=== PATIENT | male | born 1960 | race African-American/Black ===

== ENCOUNTER 2017-01-17 19:09 | Inpatient (IN) | payer OTHER ==
[~2017-01-17] VITALS: Ht 154.9 cm; Wt 36.7 kg
--- NOTE | ~2017-01-17 | O ---
[facility] [place] [address] OPERATIVE REPORT Name: KIRSTIE CORONA SONIA Room #: 455-P [facility] IN M.R.#: [id number] Admission: 01/17/17 Attend Phys: Gwen Willett MD Discharge: Date of : 62 Report #: [id number] THIS REPORT FOR: //name// CC: Gwen Alvarez makeda DATE OF SERVICE: 02/04/2017 PREOPERATIVE DIAGNOSES: Dysphagia, aspiration, and history of cerebral palsy. POSTOPERATIVE DIAGNOSES: Dysphagia, aspiration, and history of cerebral palsy. PROCEDURE: Diagnostic laparoscopy, esophagogastroduodenoscopy, and placement of 24-Chadian gastrostomy feeding tube. SURGEON: Tramaine Nash MD COMPUTER INFORMATION SYSTEMS INSTRUCTOR: Jasbir Allison MD ANESTHESIA: General endotracheal anesthesia. ESTIMATED BLOOD LOSS: 10 mL. SPECIMEN TO PATHOLOGY: None. COMPLICATIONS: None applicable. INDICATION FOR PROCEDURE: The patient is a 56-year-old male patient with history of cerebral palsy. He is nonverbal, although he does nod yes and no appropriately. There is also history of oropharyngeal dysphagia and potential aspiration has been reported with concern for aspiration pneumonia. General surgery was therefore consulted for placement of feeding tube after attempt by gastroenterology was not successful secondary to the patient's body habitus. The patient has severe kyphoscoliosis and his stomach is largely in the thoracic cavity. By standard EGD PEG technique, this was deemed to be unsafe for placement secondary to the anatomy. Interventional radiology was also consulted and in a similar fashion, this was not safe for placement of feeding tube without more invasive procedure. Therefore, discussion of the risks and benefits was held with the patient and his mother who was the durable power of disability attorney, risks including bleeding, pain, infection, dislodgement of the tube, possible inability to place the tube secondary to anatomic considerations, possible need for removal or further manipulation of the tube at a later date and other possible unforeseen circumstances were all discussed. All questions were answered to their satisfaction and written informed consent was obtained. DESCRIPTION OF PROCEDURE: The patient was brought to the operating room and placed in a supine position. Time-out was taken to verify the patient's [facility] [address] [place] [address] OPERATIVE REPORT Name: KIRSTIE CORONA Room #: 455-P [facility] IN M.R.#: [id number] Admission: 01/17/17 Attend Phys: Gwen Willett MD Discharge: Date of : 62 Report #: [id number] identity and to plan the procedure. SCDs were in place in the lower extremities bilaterally. Preoperative antibiotics were administered. Anesthesia was induced. The patient was intubated. Abdomen was sterilely prepped and draped in standard fashion. As discussed above, the patient's anatomy was quite abnormal with severe kyphoscoliosis and previous hardware placement to stabilize the spine, which resulted in the patient's thorax and abdomen being quite contorted and small in stature. This made surgical approach more challenging. The umbilicus was anesthetized with local anesthetic and incision was made with a 10-blade and carried through the skin and subcutaneous tissue. Dissection was carried down to the level of the umbilical stalk and fascia. This was grasped and opened carefully with Metzenbaum scissors. Clamp was then passed through the opening to enlarge this and digital palpation was also performed. A 5-mm 0-degree laparoscope was then used for a direct visual access through this opening and pneumoperitoneum was created. Inspection of the viscera showed that no injury had occurred upon entry. A 30-degree 5-mm scope was then utilized and a second 5-mm left lower quadrant port was placed under direct visualization. The patient was placed in reverse Trendelenburg position. The stomach was indeed noted to be high up in thorax as seen on CT scan, this was grasped with an atraumatic grasper and pulled down toward the left upper quadrant of the abdominal cavity. This was placed into apposition against the anterior abdominal wall and was noted to lie nicely in this location without any undo tension. A stab incision was made externally at the level of the skin overlying the proposed site for feeding tube. A suture passer was passed through this stab incision and an 0 PDS suture was used to pass through the gastric body along the anterolateral border and this was brought back out through the stab incision. A second 0 PDS was placed in similar fashion and these were tagged and pulled taut to show that the stomach was placed up snuggly against the anterior abdominal wall without any undo tension. Next, a Fujinon endoscope was inserted through the oral cavity into the gastric body. This showed no obvious abnormalities anatomically. Insufflation of the stomach was performed and this was noted to expand on the laparoscopic visualization. Next, an 18-gauge needle was passed through the previously made stab incision into the gastric body, which was visualized via the Fujinon endoscope. A sheath was passed through this 18-gauge needle and the 18-gauge needle was removed. A guidewire was then passed through the sheath, which was torn away. The guidewire was then ensnared with the Fujinon endoscope and pulled back out through the oral cavity. This was then connected to a 24-Chadian Silastic PEG tube and this was lubricated and pulled back through the oral cavity, esophagus and gastric lumen through the previously created stab incision to the externa. Visualization of the gastric lumen showed that the disk was well up against the anterior wall of the gastric lumen with no obvious active bleeding. This was noted to spin in place without any undo tension or restriction. Visualization of the stomach itself from the laparoscopic view showed that this was also in good position. The 0 PDS suture was tied down. The external aspect of the tube was then cut to proper length and attachments were applied. These were then anchored into [facility] [address] [place] [address] OPERATIVE REPORT Name: KIRSTIE CORONA Room #: 455-P [facility] IN .R.#: [id number] Admission: 01/17/17 Attend Phys: Gwen Willett MD Discharge: Date of : 62 Report #: [id number] with interrupted nylon suture externally times 3. Stomach was desufflated with the Fujinon endoscope and this was withdrawn carefully from the esophagus and oral cavity with attempts to suction secretions on the away out. Pneumoperitoneum was then removed after further inspection of the stomach up against the anterior abdominal wall, which was now well anchored in place with no obvious active bleeding noted. The 5-mm ports were then removed after pneumoperitoneum had been relieved and skin was closed at each of the 2 sites using 4-0 Monocryl subcuticular stitches after further local anesthetic had been infiltrated. Dermabond was applied externally at each of the two 5 mm port sites. At this point, the case was ended, all instrumentation had been extracted and accounted for. All counts were correct per nursing report. Intraoperative photographs had been taken at various points during the procedure, which were saved for the patient's chart. The patient was then extubated and taken to the postoperative care unit in stable condition. <ELECTRONICALLY SIGNED> By: Tramaine Nash MD 02/08/17 1500 1000 1240 Tramaine Nash MD /nt
--- NOTE | ~2017-01-17 | 2DMMODE ---
[facility] [address] [place] [address] 2 D/M-MODE ECHOCARDIOGRAM Name: KIRSTIE CORONA SONIA Room #: 242-P ADM IN M.R.#: [id number] Admission: 01/17/17 Attend Phys: Gwen Willett MD Discharge: Date of : 62 Date of Service: 01/21/17 1048 Report #: [id number] THIS REPORT FOR: //name// APPROVED REPORT Study performed: 01/21/2017 07:55:37 EXAM: Comprehensive 2D, Doppler, and color-flow Echocardiogram Patient Location: Bedside Room #: 242 Blood Pressure: 158/96 mmHg HR: 114 bpm Other Information Study Quality: Adequate Technically limited study due to restless patient, tachypnea, limited mobility. Indications hypertension, respiratory failure 2D Dimensions RVDd: 30.66 mm LVEF(%): 75.46 (>50%) IVSd: 12.11 (7-11mm) LVOT Diam: 18.00 (18-24mm) LVDd: 34.10 mm PWd: 12.55 (7-11mm) Ascending Ao: 23.36 (22-36mm) LVDs: 19.36 (25-40mm) Aortic Root: 29.42 mm Grayson's LVEF: 75.46 % Volumes Left Atrial Volume (Systole) Single Plane 4CH: 22.82 mL Single Plane 2CH: 26.38 mL LA ESV Index: 19.00 mL/m2 Aortic Valve AoV Peak Kwame.: 1.73 m/s AO Peak Gr.: 11.99 mmHg LVOT Max P.25 mmHg LVOT Max V: 1.25 m/s LYNDSEY Vmax: 1.84 cm2 Mitral Valve [facility] [email or web address] [place] [address] 2 D/M-MODE ECHOCARDIOGRAM Name: CHLOE,KIRSTIE SONIA Room #: 242-P [facility] IN ..#: [id number] Admission: 01/17/17 Attend Phys: Gwen Willett MD Discharge: Date of : 62 Date of Service: 01/21/17 1048 Report #: [id number] E/A Ratio: 0.8 MV Decel. Time: 125.21 ms MV E Max Kwame.: 0.92 m/s MV A Kwame.: 1.15 m/s MV PHT: 36.31 ms IVRT: 57.67 ms Pulmonary Valve PV Peak Kwame.: 1.01 m/s PV Peak Gr.: 4.12 mmHg Tricuspid Valve TR Peak Kwame.: 2.93 m/s TR Peak Gr.: 34.34 mmHg Left Ventricle The left ventricle is normal size. There is normal LV segmental wall motion. Mild concentric left ventricular hypertrophy. Left ventricular systolic function is normal. LVEF is 65%. Grade I - abnormal relaxation pattern. Right Ventricle The right ventricle is normal size. The right ventricular systolic function is normal. Atria The left atrium size is normal. The right atrium size is normal. Aortic Valve Aortic valve leaflets are mildly thickened. No aortic regurgitation is present. There is no aortic valvular stenosis. Mitral Valve The mitral valve is normal in structure. There is no mitral valve regurgitation noted. No evidence of mitral valve stenosis. Tricuspid Valve The tricuspid valve is normal in structure. There is trace tricuspid regurgitation. There is mild pulmonary hypertension with an estimated PAP of 34 mmHg plus RAP. Pulmonic Valve The pulmonary valve is normal in structure. There is no pulmonic valvular regurgitation. Great Vessels [facility] [address] [place] [address] 2 D/M-MODE ECHOCARDIOGRAM Name: KIRSTIE CORONA SONIA Room #: 242-P ADM IN M.R.#: [id number] Admission: 01/17/17 Attend Phys: Gwen Willett MD Discharge: Date of : 62 Date of Service: 01/21/17 1048 Report #: [id number] The aortic root is normal in size. The ascending aorta is normal in size. IVC is not well visualized. Pericardium Trace pericardial effusion. <Conclusion> The left ventricle is normal size. LVEF is 65%. Aortic valve leaflets are mildly thickened. The mitral valve is normal in structure. The tricuspid valve is normal in structure. There is trace tricuspid regurgitation. There is mild pulmonary hypertension with an estimated PAP of 34 mmHg plus RAP. <ELECTRONICALLY SIGNED> By: Josh Palacios MD 01/21/17 1048 1048 1048 Josh Palacios MD /INF
--- NOTE | ~2017-01-17 | HC ---
[facility] [place] [address] CONSULTATION Name: CHLOEKIRSTIE SONIA Room #: 242-P [facility] IN M.R.#: [id number] Admission: 01/17/17 Attend Phys: Gwen Willett MD Discharge: Date of : 62 Report #: [id number] THIS REPORT FOR: //name// CC: Gwen Phillips REASON FOR CONSULTATION: I was asked to evaluate concerning pneumonia. HISTORY OF PRESENT ILLNESS: The patient is a 56-year-old with underlying severe cerebral palsy, scoliosis who was admitted on 01/17/2017 with shortness of breath, diaphoresis, anxiety. Several days prior to this, he was hospitalized at [facility] with pneumonia and suspected urinary tract infection. He was given IV antibiotic therapy. Rhinovirus was identified from his respiratory secretions. He does eat by mouth. During his hospitalization here, he has remained fairly encephalopathic. He is given vancomycin and Zosyn. Video swallow although radiographically did not show aspiration. Clinically, he appeared to aspirate with coughing after swallowing. He remains on oxygen at 2 liters. He has been afebrile but intermittently tachycardic and yesterday, he got more tachycardic and restless. He was brought down to the Intensive Care Unit for further monitoring. Overnight, he has done reasonably well. He remains somewhat hypotensive. With pain medicine, he relaxes. There has been no vomiting or diarrhea. He voids on his own. There have been no rashes or decubiti. Really minimal cough or sputum production. ALLERGIES: None known. MEDICATIONS: As noted on his MAR, including Solu-Medrol, vancomycin and Zosyn. PAST MEDICAL HISTORY: Severe kyphoscoliosis, cerebral palsy, hypertension, obstructive sleep apnea, anxiety, dysphagia. FAMILY HISTORY: Noncontributory. SOCIAL HISTORY: Nonsmoker, no significant alcohol intake, lives in a skilled nursing. REVIEW OF SYSTEMS: Noted above. PHYSICAL EXAMINATION: VITAL SIGNS: Currently, he is afebrile, hemodynamically showing tachycardia at 108, blood pressure 153/113, oxygen saturation 100% on 2 liters. GENERAL: He was arousable but would not respond verbally. EYES: Unremarkable. MOUTH: Unremarkable. NECK: Supple. He was very small in stature. He had a severe scoliosis. LUNGS: He had coarse breath sounds anteriorly, more consolidation heard in the right upper chest. Decreased breath sounds in the left base. [facility] [address] [place] [address] CONSULTATION Name: KIRSTIE CORONA Room #: 242-P [facility] IN .R.#: [id number] Admission: 01/17/17 Attend Phys: Gwen Willett MD Discharge: Date of : 62 Report #: [id number] HEART: Tachycardic. ABDOMEN: Soft and nontender, no appreciable masses. LABORATORY STUDIES: Sodium 141, potassium 3.8, bicarbonate 25, creatinine 0.8. Liver function tests normal. Troponin 0.12. Hemoglobin 10.9, white count 11.3, platelet count is 501,000. MRSA screen is pending on 2 liters of oxygen per nasal cannula. His pO2 is 85, pCO2 38, pH 7.4. Blood cultures are negative. Chest x-ray shows elevated right hemidiaphragm and atelectasis, but no other acute infiltrates. He does well as noted above. IMPRESSION: A 56-year-old with fairly advanced scoliosis and restrictive lung disease with underlying cerebral palsy. I suspect aspiration pneumonitis and would be driving his leukocytosis in addition to corticosteroids. PLAN: We will continue current support, obtain urinalysis and urine culture. He may need to be straight cath to obtain the sample. I agree with a PEG tube feeding if possible to play safely. We will continue to monitor his white count and follow his chest x-ray. <ELECTRONICALLY SIGNED> By: Vincent Posadas MD 01/21/17 1254 0845 1048 Vincent Posadas MD /nt
--- NOTE | ~2017-01-17 | P ---
[facility] [place] [address] PROCEDURE REPORT Name: KIRSTIE CORONA SONIA Room #: 455-P [facility] IN M.R.#: [id number] Admission: 01/17/17 Attend Phys: Gwen Willett MD Discharge: Date of : 62 Report #: [id number] THIS REPORT FOR: //name// CC: wGen Phillips DATE OF SERVICE: 02/02/[address] Gwen Willett. PROCEDURE: EGD with the intent of placing a PEG tube. INDICATION FOR PROCEDURE: This patient has severe cerebral palsy and scoliosis. He has developed oropharyngeal dysphagia at the age of 56 and requires a PEG tube for feeding purposes. Informed consent for this procedure was obtained prior to the administration of any medication. The risks of the procedure including bleeding, perforation, infection, complications of sedation and the possibility I could miss something have been explained to the patient and his mother has indicated her consent for the patient to have this procedure done. The patient has given his consent by nodding his head to have this procedure. He is unable to sign and unable to speak adequately to make his feelings known. Propofol was slowly titrated before and during this procedure for patient comfort by the anesthesia service. The Encentuaten upper videoscope was introduced through the upper esophageal sphincter and advanced under direct visualization to the descending duodenum. Findings are noted on withdrawal of the scope. Duodenal mucosa appears normal throughout its entirety, although I mostly just saw the duodenal bulb and the second portion of the duodenum. Pylorus, normal mucosa. Antrum, normal mucosa. Body, normal mucosa. Cardia and fundus, normal mucosa. Retroflex view did not reveal any hiatal hernia. I was able to locate one area of transillumination near the xiphoid process just to the left of it, so the xiphoid process was on the right side of this area and the patient's left ribs were on the left side of this area. Unfortunately, I think that this would cause so much pain with inspiration or coughing that most likely he would not be able to tolerate this well without having a lot of difficulty. So the decision to not place a PEG tube today was made. The scope was withdrawn into the esophagus. Esophageal mucosa was normal throughout its entirety. Scope was withdrawn. The patient went to the recovery area in stable condition. He tolerated the procedure well. IMPRESSION: 1. Normal EGD to descending duodenum. 2. Unable to place PEG tube because of inadequate placement selection process. [address] [address] PROCEDURE REPORT Name: KIRSTIE CORONA Room #: 455-P [facility] IN M.R.#: [id number] Admission: 01/17/17 Attend Phys: Gwen Willett MD Discharge: Date of : 62 Report #: [id number] This is very limited because of the patient's deformities. My recommendations were to consult interventional radiology and possibly even surgery for PEG tube placement. Thank you very much once again for allowing me to participate in his care, Dr. Willett. <ELECTRONICALLY SIGNED> By: Drea Saha, 02/03/17 1451 1306 2227 Drea Saha DO /nt
--- NOTE | ~2017-01-17 | HC ---
[facility] [place] [place] [place] [address] CONSULTATION Name: KIRSTIE CORONA SONIA Room #: 237-P [facility] IN M.R.#: [id number] Admission: 01/17/17 Attend Phys: Gwen Willett MD Discharge: Date of : 62 Report #: [id number] THIS REPORT FOR: //name// CC: Morris Phillips PRIMARY CARE PHYSICIAN: Unknown. REFERRING PHYSICIAN: Morris Cho MD. REASON FOR REFERRAL: Possible pneumonia. HISTORY OF PRESENT ILLNESS: The patient is a 56-year-old male who presents to the Emergency Room with an apparent panic attack and dyspnea. The patient is nonverbal. He has severe cerebral palsy with severe scoliosis. The patient normally resides in a intermediate. According to records, the patient was hospitalized less than a week ago at [facility] for possible pneumonia. He was just dismissed following course of antibiotics and steroids. Yesterday, according to the mother, the patient developed chills, dyspnea and apparent panic attack. The patient complains of chest pain, abdominal pain, back pain. The patient was brought to the hospital. Of note, the patient had a CT chest angiogram performed at [facility], which was negative for pulmonary embolus. He has a history of sleep apnea, but does not wear a CPAP. Currently, he is in no distress. He is nonverbal. No other family members are available. PAST MEDICAL HISTORY: Notable for severe cerebral palsy, severe scoliosis, apparent chronic elevation of right hemidiaphragm encompassing most of the right hemithorax, hypertension, GAUTAM, intolerant to the use of CPAP, anxiety and dysphagia. PAST SURGICAL HISTORY: The patient has had prior back surgery with david placement. ALLERGIES: None noted. MEDICATIONS: From home are reviewed. FAMILY HISTORY: Noncontributory. SOCIAL HISTORY: He resides at the hospital intermediate. Mother looks in [facility] [address] [place] [address] CONSULTATION Name: KIRSTIE CORONA SONIA Room #: 237-P [facility] IN [facility]#: [id number] Admission: 01/17/17 Attend Phys: Gwen Willett MD Discharge: Date of : 62 Report #: [id number] after the patient on a regular basis. There is no history of tobacco or alcohol use. REVIEW OF SYSTEMS: As mentioned above, otherwise is deferred as the patient is nonverbal. PHYSICAL EXAMINATION: GENERAL: He is awake, in no distress. VITAL SIGNS: Temperature is 97.7 degrees Fahrenheit, temperature maximum 99, pulse is 106, respiratory rate is 20, blood pressure 149/96 mmHg, saturation is 96% on supplemental O2. HEENT: Normocephalic, atraumatic. NECK: Supple, without any lymphadenopathy or thyromegaly. CHEST: Breath sounds are decreased, coarse breath sounds, markedly reduced in the right lung field. CARDIOVASCULAR: Normal S1, S2. There are no murmurs or gallop. Pulses are 2+/4+ bilaterally. ABDOMEN: Soft, nontender. No masses felt. GENITOURINARY AND RECTAL: Deferred. EXTREMITIES: No cyanosis or clubbing. MUSCULOSKELETAL: Remarkable for severe cerebral palsy, marked muscle atrophy. LABORATORY DATA: Chest x-ray shows marked elevation of the right hemidiaphragm encompassing most of the right hemidiaphragm, left lung field appears grossly unremarkable with pulmonary vascular congestion, possible left lower lobe infiltrate is noted. Electrolytes are unremarkable. Creatinine 0.8. Liver function profile is grossly unremarkable. WBC is 13,800, hemoglobin 12.1. There are no left shift. Arterial blood gas on admission revealed pH 7.35, pCO2 of 863, pO2 89 on 2 liters of O2, albumin 3.1. IMPRESSION: 1. Apparent dyspnea, anxiety, panic attack in this 56-year-old male with severe cerebral palsy. Etiology is unclear at this time, but I suspect component of untreated sleep apnea as a cause for transient hypercapnia. Chest x-ray suggests possible infiltrates suggesting pneumonia, possible aspiration in this patient with severe cerebral palsy. Progressive debility, weakness leading to hypoventilation may also be playing a role. 2. Severe cerebral palsy. 3. Severe left diaphragmatic weakness resulting in severe restrictive ventilatory defect. 4. Obstructive sleep apnea and apparent intolerance to use of CPAP. 5. Progressive debility and weakness. 6. Acute hypercapnic hypoxic respiratory failure as mentioned above. RECOMMENDATION: Agree with broad spectrum antibiotics. Role of corticosteroids is unclear at this time, but could treat for short course and taper over the [address] [address] CONSULTATION Name: CHLOEKIRSTIE SONIA Room #: 237-P ADM IN M.R.#: [id number] Admission: 01/17/17 Attend Phys: Gwen Willett MD Discharge: Date of : 62 Report #: [id number] next 5-7 days, try noninvasive positive pressure ventilation if the patient is able to tolerate though this is understandable given his severe cerebral palsy. DVT and GI prophylaxis will be addressed. Overall look in this patient is poor given severe comorbid condition. Risk of developing overt respiratory failure requiring mechanical ventilation is high. Family remains a full code blue. Thank you for the consultation. <ELECTRONICALLY SIGNED> By: Checo Jackson MD 01/25/17 1124 1111 1345 Checo Jackson MD /nt
--- NOTE | ~2017-01-17 | EKG ---
[address] [place] [address] ELECTROCARDIOGRAM REPORT Name: CHLOEKIRSTIE Room #: 202-P ADM IN M.R.#: [id number] Admission: 01/17/17 Attend Phys: Prabhu Lezama MD Discharge: Date of : 62 Report #: [id number] THIS REPORT FOR: //name// [facility] ED Test Date: 2017-01-17 Test Time: 20:13:02 Pat Name: KIRSTIE CORONA Department: Room: 202 Gender: M Lens Blocker: MZOOK : 1960 Requested By: Jeffy Moreno Order Number: [id number] MD: Mau Glover Measurements Intervals [place] Rate: 97 P: 32 VA: 99 QRS: 51 QRSD: 88 T: 61 QT: 366 QTc: 465 Interpretive Statements Sinus rhythm Short VA interval Low voltage, extremity leads Minimal ST elevation, anterolateral leads similar to previous ekg Electronically Signed On 01-19-2017 9:50:18 CDT by Mau Glover [email or web address] <ELECTRONICALLY SIGNED> By: Mau Glover MD 01/19/17 0950 2013 12 Mau Glover MD /PRESTON
--- NOTE | ~2017-01-17 | HC ---
[facility] [place] [address] CONSULTATION Name: KIRSTIE CORONA Room #: 455-P [facility] IN M.R.#: [id number] Admission: 01/17/17 Attend Phys: Gwen Willett MD Discharge: Date of : 62 Report #: [id number] THIS REPORT FOR: //name// CC: Gwen Phillips DATE OF SERVICE: 02/03/2017 REASON FOR CONSULTATION: Surgical placement of feeding tube. HISTORY OF PRESENT ILLNESS: The patient is a 56-year-old male patient with history of severe cerebral palsy. He has history of oropharyngeal dysphagia and suspected pulmonary aspiration with aspiration pneumonia. He has been evaluated by speech pathology regarding this. Gastroenterology was consulted for PEG placement and this was attempted. During the EGD portion of this procedure, it was noted that the tube will need to be quite close to the xiphoid and it was felt by the barrel waterer that this may be significantly painful postoperative; therefore, the tube was not placed through the abdominal wall and the procedure was aborted. The patient has history of delirium and cannot actively participate in his decision making. He has a durable power of city attorney. At the time of this interview family was not present at the bedside unfortunately. General Surgery and Interventional Radiology were both consulted for potential placement of feeding tube. PAST MEDICAL HISTORY: Positive for obstructive sleep apnea, hypertension, cerebral palsy, asthma, restrictive lung disease, chronic anemia, right diaphragmatic paralysis. PAST SURGICAL HISTORY: Spinal fixation. SOCIAL HISTORY: The patient's mother is the durable power of city attorney who is his guardian. The patient has DNR status at this time. Negative for tobacco, ETOH or drug use. ALLERGIES: No known drug allergies. FAMILY HISTORY: Reviewed and noncontributory. REVIEW OF SYSTEMS: Unobtainable as the patient is nonverbal. CURRENT MEDICATIONS: Include methylprednisolone 40 mg daily, PPN, electrolyte replacement, clonidine, morphine sulfate 1-10 mg q. 1 hour, metoprolol, albuterol, Benadryl, hydralazine, DuoNebs, heparin, subcutaneous famotidine, Zofran, Toradol, which has been discontinued. PHYSICAL EXAMINATION: GENERAL: The patient is thin and cachectic and nonverbal. He does attempt to nod yes or no and answer to questions. [address] [address] CONSULTATION Name: KIRSTIE CORONA Room #: 455-[facility] IN M.R.#: [id number] Admission: 01/17/17 Attend Phys: Gwen Willett MD Discharge: Date of : 62 Report #: [id number] EXTREMITIES: He has contractures at the extremities and his upper and lower extremities are significantly atrophic. Extremities with severe contractures and atrophy. PULMONARY: Shows decreased breath sounds bilaterally and breath sounds are slightly coarse. The patient is presently receiving a breathing treatment at this time. HEART: Regular without any obvious dysrhythmia. NECK: No jugular venous distention. ABDOMEN: Soft, nondistended, his abdominal habitus is compressed secondary to severe kyphoscoliosis. The left costal margin is quite near the iliac crest indicating a small abdominal cavity. This would explain the issues raised by Gastroenterology during their EGD. IMPRESSION AND PLAN: 1. 56-year-old male patient with severe cerebral palsy with oropharyngeal dysphagia and inability to tolerate oral intake without significant risk of aspiration. Agree with plan for surgical enteral access. Interventional Radiology team is presently evaluated the patient and this may be possible to be placed with image guidance in the Interventional Radiology Suit. 2. Should this prove unsuccessful, General Surgery would be happy to attempt to establish surgical enteral access, namely a laparoscopic assisted percutaneous endoscopic gastrostomy tube for the patient enteral access. Consultation very much appreciated. Will continue to follow closely and make further recommendations based upon clinical status as well as laboratory and radiographic findings. <ELECTRONICALLY SIGNED> By: Tramaine Nash MD 02/04/17 1012 1751 0516 Tramaine Nash MD /nt
--- NOTE | ~2017-01-17 | EKG ---
[address] [address] ELECTROCARDIOGRAM REPORT Name: CHLOEKIRSTIE Room #: 237-P ADM IN M.R.#: [id number] Admission: 01/17/17 Attend Phys: Gwen Willett MD Discharge: Date of : 62 Report #: [id number] THIS REPORT FOR: //name// [facility] Test Date: 2017-01-20 Test Time: 10:58:51 Pat Name: KIRSTIE CORONA Department: Room: 237 Gender: M Waste Duster: NOLBERTO : 1960 Requested By: Gwen Willett Order Number: [id number] MD: Mau Glover Measurements Intervals [place] Rate: 137 P: 48 CT: 113 QRS: 18 QRSD: 74 T: 31 QT: 303 QTc: 458 Interpretive Statements Sinus tachycardia Electronically Signed On 01-24-2017 8:13:23 CDT by Mau Glover [email or web address] <ELECTRONICALLY SIGNED> By: Mau Glover MD 01/24/17 0813 1058 1058 Mau Glover MD /EPI
[~2017-01-17 19:09] MED LIST: AMITIZA 24 MCG24 MCG PO; BACTRIM DS TAB1 EACH PO; CIPROFLOXACIN500 M1 PO; COLACE100 MG PO; DEXILANT60 MG PO; DUONEB 2.5-0.5 M3 ML INH; ESCITALOPRAM OX20 MG PO; FLEXERIL PO; HYDROCODONE-APA1 TA1 PO; LOPRESSOR50 PO; MAG-AL PLUS SUS30 ML PO; MAGOX 400400 MG PO; MIRALAX255 GM PO; OMEGA-31000 M1 PO; PERIDEX15 ML MM; PROTONIX40 M4 PO; REGLAN 10 MG TA10 MG PO; REMERON15 MG PO; SENNA8.6 MG PO; TYLENOL325 MG PO; UNICOMPLEX M TA1 TA1 PO; VITAMINC500 PO; XANAX 0.25 MG0.25 MG PO; ZANTAC 150MG T150 M1 PO; [UNRECOGNIZED DRUG - OTHER] TP
[2017-01-17 19:11] VITALS: BP 146/105
[2017-01-17 19:57] LABS: ABSOLUTE NEUTROPHILS 11.1 thou/uL (1.4-8.2); BASOPHILS 0.6 % (0.0-2.0); EOSINOPHILS 0.6 % (0.0-3.0); HEMATOCRIT 37.3 % (42.0-52.0); HEMOGLOBIN 12.1 gm/dL (14.0-18.0); MCH 28.2 pg (26.0-34.0); MCHC 32.5 g/dL (28.0-37.0); MCV 86.8 fL (80.0-100.0); MONOCYTES 5.2 % (1.0-8.0); PLATELET COUNT 451 thou/uL (150-400); POLYS 80.6 % (36.0-66.0); RDW 15.9 % (10.5-14.5); WBC 13.8 thou/uL (4.0-11.0)
[2017-01-17 19:58] LABS: MANUAL DIFF NO
[2017-01-17 20:11] LABS: ANION GAP 8 mmol/L (7-16); BUN 8 mg/dL (7-18); CALCIUM 9.2 mg/dL (8.5-10.1); CHLORIDE 102 mmol/L (98-107); CO2 32 mmol/L (21-32); CREATININE 0.8 mg/dL (0.7-1.3); GLUCOSE 108 mg/dL (74-106); POTASSIUM 4.1 mmol/L (3.5-5.1); SODIUM 142 mmol/L (136-145)
[2017-01-17] MEDS ORDERED: ACCUNEB SO1.25 MG/1 INH (20:14)
[2017-01-17] MEDS ORDERED: VITAMINC500 PO (20:14)
[2017-01-17] MEDS ORDERED: BISMUTH262 M1 PO (20:15)
[2017-01-17] MEDS ORDERED: IRON325 PO (20:16)
[2017-01-17] MEDS ORDERED: ROBITUSSIN100 MG/53 PO (20:17)
[2017-01-17] MEDS ORDERED: CLARITIN10 MG PO (20:17)
[2017-01-17] MEDS ORDERED: KRISTALOSE10 GM PO (20:17)
[2017-01-17 20:18] LABS: ALBUMIN 3.1 g/dL (3.4-5.0); ALKALINE PHOSPHATASE 89 U/L (46-116); NT-PRO BRAIN NAT PEPTIDE 711 pg/mL (<300); SGOT 14 U/L (15-37); SGPT 18 U/L (30-65); TOTAL BILIRUBIN 0.2 mg/dL (<0.1-1.0); TOTAL PROTEIN 7.2 g/dL (6.4-8.2); TROPONIN-I < 0.04 ng/mL (<0.04-0.07)
[2017-01-17 20:23] LABS: ABG SAMPLE TYPE ARTERIAL; BE(vivo) 7.1 mmol/L (-2 to +3); HCO3 34.4 mmol/L (22.0-26.0); LACTATE 1.16 mmol/L (0.5-2.0); O2(CT) 15.1 mL/dL (15.0-23.0); O2Hb 95.8 % (92.0-98.0); PCO2 63.8 mmHg (35.0-45.0); PO2 98.9 mmHg (80.0-100.0); tCO2 36.4 mmol/L (24.0-30.0)
[2017-01-17 20:24] LABS: ABG COMMENT NO COMPLICATIONS.; STICK SITE R.RADIAL
[2017-01-17 21:53] VITALS: BP 115/72
[2017-01-17 23:19] VITALS: BP 138/91
[2017-01-18 04:18] VITALS: BP 128/85
[2017-01-18 07:37] VITALS: BP 149/96
[2017-01-18 10:04] LABS: ABG SAMPLE TYPE ARTERIAL; BE(vivo) 2.7 mmol/L (-2 to +3); HCO3 26.3 mmol/L (22.0-26.0); LACTATE 1.35 mmol/L (0.5-2.0); O2(CT) 14.1 mL/dL (15.0-23.0); O2Hb 91.5 % (92.0-98.0); PO2 62.7 mmHg (80.0-100.0); sO2 93.4 % (92.0-98.0); tCO2 27.5 mmol/L (24.0-30.0)
[2017-01-18 10:05] LABS: ABG COMMENT NO COMPLICATIONS; STICK SITE R.RADIAL
[2017-01-18 11:56] VITALS: BP 152/105
[2017-01-18 19:18] VITALS: BP 159/104
[2017-01-19 02:58] VITALS: BP 170/97
[2017-01-19 07:10] VITALS: BP 148/90
[2017-01-19 10:42] LABS: HEMATOCRIT 27.9 % (42.0-52.0); MCH 27.8 pg (26.0-34.0); MCHC 32.5 g/dL (28.0-37.0); MCV 85.4 fL (80.0-100.0); PLATELET COUNT 407 thou/uL (150-400); RBC 3.27 mil/uL (4.50-6.00); RDW 16.4 % (10.5-14.5); WBC 13.9 thou/uL (4.0-11.0)
[2017-01-19 10:43] LABS: MANUAL DIFF YES
[2017-01-19 10:44] LABS: HEMOGLOBIN 9.1 gm/dL (14.0-18.0)
[2017-01-19 10:52] LABS: CALCIUM 8.7 mg/dL (8.5-10.1); CREATININE 0.7 mg/dL (0.7-1.3); MAGNESIUM 1.6 mg/dL (1.8-2.4); POTASSIUM 4.3 mmol/L (3.5-5.1)
[2017-01-19 11:00] VITALS: BP 173/110; BP 177/109
[2017-01-19 11:34] LABS: ABSOLUTE NEUTROPHILS 12.6 thou/uL (1.4-8.2); ANISOCYTOSIS 1+; ATYPICAL LYMPHS 1 %; TOTAL CELL COUNT 100
[2017-01-19 16:30] VITALS: BP 130/97; BP 165/110
[2017-01-19 20:50] VITALS: BP 176/100
[2017-01-20] VITALS (37 sets, daily range): BP systolic 125–177; BP diastolic 79–116
[2017-01-20 04:46] LABS: HEMATOCRIT 29.9 % (42.0-52.0); HEMOGLOBIN 9.6 gm/dL (14.0-18.0); MCH 27.4 pg (26.0-34.0); MCV 85.5 fL (80.0-100.0); PLATELET COUNT 420 thou/uL (150-400); RDW 16.6 % (10.5-14.5); WBC 17.5 thou/uL (4.0-11.0)
[2017-01-20 04:50] LABS: MANUAL DIFF YES
[2017-01-20 04:55] LABS: CALCIUM 8.6 mg/dL (8.5-10.1); CREATININE 0.8 mg/dL (0.7-1.3); MAGNESIUM 1.6 mg/dL (1.8-2.4); POTASSIUM 4.2 mmol/L (3.5-5.1)
[2017-01-20 05:29] LABS: ABSOLUTE NEUTROPHILS 17.3 thou/uL (1.4-8.2); ANISOCYTOSIS 1+; TOTAL CELL COUNT 100
[2017-01-20 13:41] LABS: ABG SAMPLE TYPE ARTERIAL; BE(vivo) 1.4 mmol/L (-2 to +3); HCO3 25.5 mmol/L (22.0-26.0); LACTATE 1.29 mmol/L (0.5-2.0); O2Hb 95.9 % (92.0-98.0); PCO2 38.1 mmHg (35.0-45.0); PO2 85.4 mmHg (80.0-100.0); pH 7.443 (7.360-7.450); sO2 96.8 % (92.0-98.0); tCO2 26.6 mmol/L (24.0-30.0)
[2017-01-20 13:42] LABS: STICK SITE R.RADIAL
[2017-01-21] VITALS (48 sets, daily range): BP systolic 99–198; BP diastolic 58–138
[2017-01-21 05:52] LABS: HEMATOCRIT 33.4 % (42.0-52.0); HEMOGLOBIN 10.9 gm/dL (14.0-18.0); MCH 28.1 pg (26.0-34.0); MCHC 32.7 g/dL (28.0-37.0); MCV 85.9 fL (80.0-100.0); RBC 3.89 mil/uL (4.50-6.00); RDW 16.7 % (10.5-14.5); WBC 11.3 thou/uL (4.0-11.0)
[2017-01-21 06:05] LABS: CREATININE 0.8 mg/dL (0.7-1.3); POTASSIUM 3.8 mmol/L (3.5-5.1)
[2017-01-21 21:58] LABS: URINE BILIRUBIN NEGATIVE (Negative); URINE BLOOD TRACE (Negative); URINE COLOR YELLOW; URINE GLUCOSE-RANDOM* NEGATIVE (Negative); URINE KETONES TRACE (Negative); URINE LEUKOCYTES-REFLEX NEGATIVE (Negative); URINE PROTEIN (DIPSTICK) NEGATIVE (Negative); URINE UROBILINOGEN 0.2 E.U./dl (0.2-1.0)
[2017-01-21 23:40] LABS: ABG SAMPLE TYPE ARTERIAL; BE(vivo) 3.2 mmol/L (-2 to +3); HCO3 28.9 mmol/L (22.0-26.0); LACTATE 1.65 mmol/L (0.5-2.0); O2(CT) 16.1 mL/dL (15.0-23.0); O2Hb 96.2 % (92.0-98.0); PCO2 48.9 mmHg (35.0-45.0); PO2 94.2 mmHg (80.0-100.0); pH 7.389 (7.360-7.450); sO2 97.1 % (92.0-98.0); tCO2 30.4 mmol/L (24.0-30.0)
[2017-01-21 23:41] LABS: STICK SITE L.RADIAL
[2017-01-22] VITALS (15 sets, daily range): BP systolic 117–189; BP diastolic 73–155
[2017-01-22 03:28] LABS: HEMATOCRIT 34.7 % (42.0-52.0); MCH 27.4 pg (26.0-34.0); MCHC 31.8 g/dL (28.0-37.0); MCV 86.1 fL (80.0-100.0); RBC 4.03 mil/uL (4.50-6.00); RDW 16.7 % (10.5-14.5); WBC 17.4 thou/uL (4.0-11.0)
[2017-01-22 03:48] LABS: CALCIUM 9.4 mg/dL (8.5-10.1); POTASSIUM 3.9 mmol/L (3.5-5.1)
[2017-01-23] VITALS (26 sets, daily range): BP systolic 103–182; BP diastolic 66–127
[2017-01-23 04:17] LABS: HEMATOCRIT 34.5 % (42.0-52.0); HEMOGLOBIN 11.1 gm/dL (14.0-18.0); MCHC 32.3 g/dL (28.0-37.0); MCV 86.5 fL (80.0-100.0); RBC 3.98 mil/uL (4.50-6.00); RDW 17.2 % (10.5-14.5); WBC 12.1 thou/uL (4.0-11.0)
[2017-01-23 04:42] LABS: ABG SAMPLE TYPE ARTERIAL; BE(vivo) 4.1 mmol/L (-2 to +3); HCO3 31.8 mmol/L (22.0-26.0); LACTATE 0.99 mmol/L (0.5-2.0); O2(CT) 16.3 mL/dL (15.0-23.0); O2Hb 97.7 % (92.0-98.0); PCO2 64.4 mmHg (35.0-45.0); PO2 120.3 mmHg (80.0-100.0); Pressure Support 12 cm H20; STICK SITE R.BRACHIAL; pH 7.312 (7.360-7.450); sO2 97.9 % (92.0-98.0); tCO2 33.8 mmol/L (24.0-30.0)
[2017-01-23 04:44] LABS: ALBUMIN 3.2 g/dL (3.4-5.0); CALCIUM 9.1 mg/dL (8.5-10.1); CREATININE 0.8 mg/dL (0.7-1.3); POTASSIUM 3.8 mmol/L (3.5-5.1); TOTAL BILIRUBIN 0.4 mg/dL (<0.1-1.0); TOTAL PROTEIN 6.8 g/dL (6.4-8.2)
[2017-01-23 04:56] LABS: PLATELET COUNT 394 thou/uL (150-400)
[2017-01-23 04:58] LABS: MANUAL DIFF YES
[2017-01-23 07:56] LABS: ABSOLUTE NEUTROPHILS 10.8 thou/uL (1.4-8.2); TOTAL CELL COUNT 100
[2017-01-23 07:57] LABS: ANISOCYTOSIS 1+
[2017-01-24] VITALS (26 sets, daily range): BP systolic 89–157; BP diastolic 55–122
[2017-01-24 04:32] LABS: HEMATOCRIT 33.6 % (42.0-52.0); HEMOGLOBIN 10.8 gm/dL (14.0-18.0); MCH 28.3 pg (26.0-34.0); MCHC 32.1 g/dL (28.0-37.0); MCV 88.2 fL (80.0-100.0); RBC 3.81 mil/uL (4.50-6.00); RDW 17.6 % (10.5-14.5); WBC 10.4 thou/uL (4.0-11.0)
[2017-01-24 04:45] LABS: CALCIUM 9.3 mg/dL (8.5-10.1); CREATININE 0.9 mg/dL (0.7-1.3); POTASSIUM 3.6 mmol/L (3.5-5.1); TOTAL BILIRUBIN 0.3 mg/dL (<0.1-1.0); TOTAL PROTEIN 6.4 g/dL (6.4-8.2)
[2017-01-24 08:06] LABS: ABG SAMPLE TYPE ARTERIAL; BE(vivo) 0.6 mmol/L (-2 to +3); HCO3 29.4 mmol/L (22.0-26.0); LACTATE 0.59 mmol/L (0.5-2.0); O2Hb 97.4 % (92.0-98.0); PO2 138.4 mmHg (80.0-100.0); sO2 98.2 % (92.0-98.0); tCO2 31.6 mmol/L (24.0-30.0)
[2017-01-24 08:07] LABS: PCO2 70.2 mmHg (35.0-45.0); Pressure Support 25 cm H20; STICK SITE R.BRACHIAL; TIDAL VOLUME 300 ml
[2017-01-25] VITALS (25 sets, daily range): BP systolic 98–169; BP diastolic 60–116
[2017-01-25 04:13] LABS: HEMATOCRIT 35.2 % (42.0-52.0); HEMOGLOBIN 11.2 gm/dL (14.0-18.0); MCH 28.5 pg (26.0-34.0); MCHC 31.7 g/dL (28.0-37.0); MCV 89.8 fL (80.0-100.0); RBC 3.92 mil/uL (4.50-6.00); RDW 18.1 % (10.5-14.5); WBC 7.4 thou/uL (4.0-11.0)
[2017-01-25 04:36] LABS: CALCIUM 9.3 mg/dL (8.5-10.1); POTASSIUM 3.6 mmol/L (3.5-5.1)
[2017-01-26] VITALS (14 sets, daily range): BP systolic 100–156; BP diastolic 63–103
[2017-01-26 03:52] LABS: HEMATOCRIT 33.2 % (42.0-52.0); HEMOGLOBIN 10.6 gm/dL (14.0-18.0); MCH 28.3 pg (26.0-34.0); MCHC 31.8 g/dL (28.0-37.0); RBC 3.73 mil/uL (4.50-6.00); RDW 17.3 % (10.5-14.5)
[2017-01-26 03:56] LABS: CALCIUM 9.4 mg/dL (8.5-10.1); CREATININE 0.8 mg/dL (0.7-1.3); POTASSIUM 3.2 mmol/L (3.5-5.1)
[2017-01-26 19:01] LABS: MAGNESIUM 2.4 mg/dL (1.8-2.4); POTASSIUM 4.1 mmol/L (3.5-5.1)
[2017-01-27] VITALS (26 sets, daily range): BP systolic 100–192; BP diastolic 66–102
[2017-01-28] VITALS (26 sets, daily range): BP systolic 88–179; BP diastolic 59–109
[2017-01-28 05:27] LABS: HEMATOCRIT 27.1 % (42.0-52.0); HEMOGLOBIN 8.9 gm/dL (14.0-18.0); MCH 28.6 pg (26.0-34.0); MCHC 32.9 g/dL (28.0-37.0); MCV 86.8 fL (80.0-100.0); RBC 3.12 mil/uL (4.50-6.00); RDW 16.8 % (10.5-14.5); WBC 4.5 thou/uL (4.0-11.0)
[2017-01-28 05:37] LABS: CALCIUM 8.8 mg/dL (8.5-10.1); CREATININE 0.6 mg/dL (0.7-1.3); POTASSIUM 3.2 mmol/L (3.5-5.1)
[2017-01-28 08:23] LABS: TROPONIN-I < 0.04 ng/mL (<0.04-0.07)
[2017-01-29] VITALS (16 sets, daily range): BP systolic 95–165; BP diastolic 66–107
[2017-01-29 05:04] LABS: HEMATOCRIT 34.5 % (42.0-52.0); MCH 28.3 pg (26.0-34.0); MCHC 32.9 g/dL (28.0-37.0); RBC 4.01 mil/uL (4.50-6.00); RDW 16.5 % (10.5-14.5); WBC 7.2 thou/uL (4.0-11.0)
[2017-01-29 05:15] LABS: HEMOGLOBIN 11.3 gm/dL (14.0-18.0)
[2017-01-29 05:31] LABS: ALBUMIN 2.8 g/dL (3.4-5.0); CALCIUM 9.2 mg/dL (8.5-10.1); CREATININE 0.7 mg/dL (0.7-1.3); MAGNESIUM 1.6 mg/dL (1.8-2.4); PHOSPHORUS 1.7 mg/dL (2.5-4.9); POTASSIUM 3.7 mmol/L (3.5-5.1)
[2017-01-30 00:04] VITALS: BP 143/95
[2017-01-30 03:58] VITALS: BP 139/85
[2017-01-30 05:32] LABS: ABSOLUTE NEUTROPHILS 3.1 thou/uL (1.4-8.2); BASOPHILS 0.3 % (0.0-2.0); EOSINOPHILS 0.2 % (0.0-3.0); HEMATOCRIT 28.5 % (42.0-52.0); HEMOGLOBIN 9.6 gm/dL (14.0-18.0); LYMPHOCYTES 22.8 % (24.0-44.0); MCH 28.6 pg (26.0-34.0); MCHC 33.8 g/dL (28.0-37.0); MCV 84.5 fL (80.0-100.0); MONOCYTES 7.3 % (1.0-8.0); PLATELET COUNT 165 thou/uL (150-400); POLYS 69.4 % (36.0-66.0); RBC 3.38 mil/uL (4.50-6.00); RDW 17.1 % (10.5-14.5); WBC 4.4 thou/uL (4.0-11.0)
[2017-01-30 05:40] LABS: MANUAL DIFF NO
[2017-01-30 05:46] LABS: CALCIUM 8.9 mg/dL (8.5-10.1); CREATININE 0.7 mg/dL (0.7-1.3); POTASSIUM 3.4 mmol/L (3.5-5.1)
[2017-01-30 08:45] VITALS: BP 119/67
[2017-01-30 12:34] VITALS: BP 131/83
[2017-01-30 15:58] VITALS: BP 145/75
[2017-01-30 20:00] VITALS: BP 153/91
[2017-01-31 04:10] VITALS: BP 120/83
[2017-01-31 04:32] LABS: CALCIUM 8.9 mg/dL (8.5-10.1); CREATININE 0.7 mg/dL (0.7-1.3)
[2017-01-31 07:51] VITALS: BP 136/85
[2017-01-31 11:46] VITALS: BP 168/103
[2017-01-31 15:58] VITALS: BP 133/92
[2017-01-31 19:38] VITALS: BP 112/81
[2017-01-31 23:40] VITALS: BP 138/87
[2017-02-01 04:33] VITALS: BP 109/70
[2017-02-01 07:07] LABS: ABG SAMPLE TYPE ARTERIAL; BE(vivo) 5.9 mmol/L (-2 to +3); O2(CT) 15.6 mL/dL (15.0-23.0); O2Hb 94.6 % (92.0-98.0); PCO2 41.4 mmHg (35.0-45.0); PO2 76.6 mmHg (80.0-100.0); STICK SITE R.BRACHIAL; pH 7.478 (7.360-7.450); sO2 96.1 % (92.0-98.0); tCO2 31.3 mmol/L (24.0-30.0)
[2017-02-01 08:38] VITALS: BP 113/78
[2017-02-01 12:16] VITALS: BP 141/94
[2017-02-01 16:02] VITALS: BP 104/71
[2017-02-01 19:25] VITALS: BP 104/76
[2017-02-01 23:05] VITALS: BP 91/58
[2017-02-02 05:17] VITALS: BP 89/59
[2017-02-02 05:51] VITALS: BP 103/68
[2017-02-02 06:45] LABS: CALCIUM 9.4 mg/dL (8.5-10.1); CREATININE 0.8 mg/dL (0.7-1.3); POTASSIUM 5.3 mmol/L (3.5-5.1)
[2017-02-02 07:17] VITALS: BP 123/85
[2017-02-02 07:39] LABS: HEMATOCRIT 34.3 % (42.0-52.0); HEMOGLOBIN 11.3 gm/dL (14.0-18.0); MCH 28.3 pg (26.0-34.0); MCHC 32.9 g/dL (28.0-37.0); MCV 85.9 fL (80.0-100.0); RBC 3.99 mil/uL (4.50-6.00); RDW 17.4 % (10.5-14.5); WBC 5.2 thou/uL (4.0-11.0)
[2017-02-02 15:14] VITALS: BP 112/74
[2017-02-02 19:28] VITALS: BP 133/91
[2017-02-03 00:04] VITALS: BP 97/64
[2017-02-03 04:13] VITALS: BP 109/71
[2017-02-03 06:16] LABS: HEMATOCRIT 26.6 % (42.0-52.0); MCH 28.4 pg (26.0-34.0); MCV 86.3 fL (80.0-100.0); RBC 3.09 mil/uL (4.50-6.00); RDW 17.3 % (10.5-14.5); WBC 4.5 thou/uL (4.0-11.0)
[2017-02-03 06:24] LABS: CREATININE 0.7 mg/dL (0.7-1.3); POTASSIUM 4.5 mmol/L (3.5-5.1)
[2017-02-03 06:25] LABS: HEMOGLOBIN 8.8 gm/dL (14.0-18.0)
[2017-02-03 09:07] VITALS: BP 118/75
[2017-02-03 11:56] VITALS: BP 136/79
[2017-02-03 17:12] VITALS: BP 149/87
[2017-02-03 20:10] VITALS: BP 136/88
[2017-02-04] VITALS (10 sets, daily range): BP systolic 130–175; BP diastolic 81–112
[2017-02-05 03:46] VITALS: BP 117/79
[2017-02-05 21:11] VITALS: BP 102/66
[2017-02-06 04:00] VITALS: BP 123/76
[2017-02-06 07:57] VITALS: BP 125/78
[2017-02-06 11:03] VITALS: BP 122/79
[2017-02-06 15:51] VITALS: BP 101/66
[2017-02-06 20:08] VITALS: BP 153/73
[2017-02-07] VITALS: BP 107/78
[2017-02-07 04:48] VITALS: BP 103/73
[2017-02-07 05:57] LABS: HEMOGLOBIN 9.2 gm/dL (14.0-18.0); MCH 28.9 pg (26.0-34.0); MCHC 33.9 g/dL (28.0-37.0); MCV 85.2 fL (80.0-100.0); RBC 3.17 mil/uL (4.50-6.00); RDW 17.5 % (10.5-14.5); WBC 7.3 thou/uL (4.0-11.0)
[2017-02-07 06:04] LABS: CALCIUM 9.3 mg/dL (8.5-10.1); CREATININE 0.6 mg/dL (0.7-1.3); POTASSIUM 4.6 mmol/L (3.5-5.1)
[2017-02-07 08:15] VITALS: BP 115/84
[2017-02-07 11:32] VITALS: BP 95/57
[2017-02-07 15:35] VITALS: BP 102/64
[2017-02-07 19:37] VITALS: BP 107/61
[2017-02-08 03:50] VITALS: BP 104/65
[2017-02-08 05:47] LABS: ABSOLUTE NEUTROPHILS 4.7 thou/uL (1.4-8.2); BASOPHILS 0.4 % (0.0-2.0); EOSINOPHILS 0.4 % (0.0-3.0); HEMATOCRIT 23.6 % (42.0-52.0); HEMOGLOBIN 7.8 gm/dL (14.0-18.0); LYMPHOCYTES 15.8 % (24.0-44.0); MCH 28.7 pg (26.0-34.0); MCHC 33.2 g/dL (28.0-37.0); MCV 86.6 fL (80.0-100.0); MONOCYTES 8.8 % (1.0-8.0); PLATELET COUNT 180 thou/uL (150-400); POLYS 74.6 % (36.0-66.0); RBC 2.73 mil/uL (4.50-6.00); RDW 17.6 % (10.5-14.5); WBC 6.3 thou/uL (4.0-11.0)
[2017-02-08 05:52] LABS: MANUAL DIFF NO
[2017-02-08 05:59] LABS: CALCIUM 9.1 mg/dL (8.5-10.1); CREATININE 0.6 mg/dL (0.7-1.3); POTASSIUM 4.5 mmol/L (3.5-5.1)
[2017-02-08 07:57] VITALS: BP 130/76
[2017-02-08 12:57] VITALS: BP 93/62
[2017-02-08 15:18] VITALS: BP 102/62
[2017-02-08 20:30] VITALS: BP 89/66
[2017-02-09 04:00] VITALS: BP 95/62
[2017-02-09 05:56] LABS: ABSOLUTE NEUTROPHILS 3.8 thou/uL (1.4-8.2); BASOPHILS 0.5 % (0.0-2.0); EOSINOPHILS 1.8 % (0.0-3.0); HEMATOCRIT 25.3 % (42.0-52.0); HEMOGLOBIN 8.6 gm/dL (14.0-18.0); LYMPHOCYTES 19.7 % (24.0-44.0); MCH 29.7 pg (26.0-34.0); MCV 87.4 fL (80.0-100.0); MONOCYTES 6.5 % (1.0-8.0); PLATELET COUNT 183 thou/uL (150-400); POLYS 71.5 % (36.0-66.0); RBC 2.89 mil/uL (4.50-6.00); WBC 5.3 thou/uL (4.0-11.0)
[2017-02-09 05:57] LABS: MANUAL DIFF NO
[2017-02-09 08:32] VITALS: BP 96/66
[2017-02-09 11:18] VITALS: BP 93/58
[2017-02-09 15:05] VITALS: BP 93/55
[2017-02-09 19:42] VITALS: BP 107/72
[2017-02-10 03:27] VITALS: BP 117/80
[2017-02-10 07:52] VITALS: BP 111/67
[2017-02-10 17:03] VITALS: BP 125/75
[2017-02-10 20:00] VITALS: BP 111/71
[2017-02-11] VITALS (7 sets, daily range): BP systolic 112–128; BP diastolic 67–81
[2017-02-12 06:45] VITALS: BP 115/75
[2017-02-12 07:45] VITALS: BP 114/68
[2017-02-12 12:05] VITALS: BP 116/70
[2017-02-12 16:13] VITALS: BP 118/72
[2017-02-12 19:59] VITALS: BP 117/70
[2017-02-13] VITALS (7 sets, daily range): BP systolic 115–184; BP diastolic 69–116
[2017-02-13 06:07] LABS: ABSOLUTE NEUTROPHILS 3.1 thou/uL (1.4-8.2); EOSINOPHILS 5.4 % (0.0-3.0); HEMOGLOBIN 8.3 gm/dL (14.0-18.0); LYMPHOCYTES 18.8 % (24.0-44.0); MCH 29.1 pg (26.0-34.0); MCHC 33.3 g/dL (28.0-37.0); MCV 87.4 fL (80.0-100.0); MONOCYTES 6.1 % (1.0-8.0); PLATELET COUNT 241 thou/uL (150-400); POLYS 68.7 % (36.0-66.0); RBC 2.86 mil/uL (4.50-6.00); RDW 17.8 % (10.5-14.5); WBC 4.5 thou/uL (4.0-11.0)
[2017-02-13 06:32] LABS: CALCIUM 8.9 mg/dL (8.5-10.1); CREATININE 0.6 mg/dL (0.7-1.3); MAGNESIUM 1.9 mg/dL (1.8-2.4); POTASSIUM 4.1 mmol/L (3.5-5.1)
[2017-02-13 07:23] LABS: MANUAL DIFF NO
[2017-02-14 06:09] VITALS: BP 109/66
[2017-02-14 12:00] VITALS: BP 112/72
[2017-02-14 15:06] VITALS: BP 120/81
[2017-02-14 19:32] VITALS: BP 109/69
[2017-02-15 05:13] VITALS: BP 125/80
[2017-02-15 05:55] LABS: ABSOLUTE NEUTROPHILS 4.2 thou/uL (1.4-8.2); BASOPHILS 1.1 % (0.0-2.0); EOSINOPHILS 2.8 % (0.0-3.0); HEMATOCRIT 22.6 % (42.0-52.0); HEMOGLOBIN 7.5 gm/dL (14.0-18.0); LYMPHOCYTES 11.8 % (24.0-44.0); MCH 29.5 pg (26.0-34.0); MCHC 33.2 g/dL (28.0-37.0); MCV 88.7 fL (80.0-100.0); MONOCYTES 6.4 % (1.0-8.0); PLATELET COUNT 226 thou/uL (150-400); POLYS 77.9 % (36.0-66.0); RBC 2.55 mil/uL (4.50-6.00); RDW 17.1 % (10.5-14.5); WBC 5.4 thou/uL (4.0-11.0)
[2017-02-15 06:00] LABS: MANUAL DIFF NO
[2017-02-15 06:10] LABS: CALCIUM 9.3 mg/dL (8.5-10.1); CREATININE 0.6 mg/dL (0.7-1.3); POTASSIUM 4.1 mmol/L (3.5-5.1)
[2017-02-15 10:59] VITALS: BP 124/78
[2017-02-15 11:43] VITALS: BP 130/72
[2017-02-15 17:23] VITALS: BP 135/78
[2017-02-15 20:07] VITALS: BP 153/97
[2017-02-16 05:11] VITALS: BP 151/92
[2017-02-16 07:25] VITALS: BP 139/92
[2017-02-16 11:48] VITALS: BP 171/112
[2017-02-16 15:01] VITALS: BP 142/84
[2017-02-16 19:29] VITALS: BP 167/99
[2017-02-17] VITALS (8 sets, daily range): BP systolic 113–179; BP diastolic 68–120
[2017-02-17 06:01] LABS: ABSOLUTE NEUTROPHILS 4.5 thou/uL (1.4-8.2); BASOPHILS 0.7 % (0.0-2.0); EOSINOPHILS 1.7 % (0.0-3.0); HEMATOCRIT 24.6 % (42.0-52.0); LYMPHOCYTES 14.9 % (24.0-44.0); MCH 28.8 pg (26.0-34.0); MCHC 32.6 g/dL (28.0-37.0); MCV 88.4 fL (80.0-100.0); MONOCYTES 7.2 % (1.0-8.0); PLATELET COUNT 266 thou/uL (150-400); POLYS 75.5 % (36.0-66.0); RBC 2.78 mil/uL (4.50-6.00); RDW 16.9 % (10.5-14.5)
[2017-02-17 06:02] LABS: MANUAL DIFF NO
[2017-02-17 06:37] LABS: CALCIUM 8.7 mg/dL (8.5-10.1); CREATININE 0.5 mg/dL (0.7-1.3); POTASSIUM 3.4 mmol/L (3.5-5.1)
[2017-02-18] VITALS (7 sets, daily range): BP systolic 115–152; BP diastolic 70–106
[2017-02-18 06:10] LABS: BASOPHILS 0.4 % (0.0-2.0); EOSINOPHILS 3.7 % (0.0-3.0); HEMATOCRIT 24.6 % (42.0-52.0); HEMOGLOBIN 8.1 gm/dL (14.0-18.0); LYMPHOCYTES 18.3 % (24.0-44.0); MCH 29.1 pg (26.0-34.0); MCHC 33.1 g/dL (28.0-37.0); MONOCYTES 6.7 % (1.0-8.0); PLATELET COUNT 264 thou/uL (150-400); POLYS 70.9 % (36.0-66.0); RDW 17.2 % (10.5-14.5); WBC 5.7 thou/uL (4.0-11.0)
[2017-02-18 06:18] LABS: MANUAL DIFF NO
[2017-02-18 06:21] LABS: CALCIUM 8.8 mg/dL (8.5-10.1); CREATININE 0.5 mg/dL (0.7-1.3); POTASSIUM 3.7 mmol/L (3.5-5.1)
[2017-02-19 03:37] VITALS: BP 129/93
[2017-02-19 05:38] LABS: CREATININE 0.6 mg/dL (0.7-1.3); POTASSIUM 4.1 mmol/L (3.5-5.1)
[2017-02-19 07:28] VITALS: BP 138/95
[2017-02-19 11:47] VITALS: BP 147/89
[2017-02-19 15:15] VITALS: BP 144/98
[2017-02-19 19:44] VITALS: BP 142/95
[2017-02-20] VITALS (7 sets, daily range): BP systolic 106–145; BP diastolic 64–100
[2017-02-20 04:27] LABS: CREATININE 0.5 mg/dL (0.7-1.3); POTASSIUM 4.2 mmol/L (3.5-5.1)
[2017-02-21 04:06] VITALS: BP 118/66
[2017-02-21 08:00] VITALS: BP 128/77
[2017-02-21 12:00] VITALS: BP 132/70
[2017-02-21] MEDS ORDERED: METOCLOPRA10 MG/101 PER TUBE (12:55)
[2017-02-21] MEDS ORDERED: PERIDEX15 ML MM (12:55)
[2017-02-21] MEDS ORDERED: IRON325 PO (12:55)
[2017-02-21] MEDS ORDERED: REMERON15 MG PO (12:55)
[2017-02-21] MEDS ORDERED: FLEXERIL PO (12:55)
[2017-02-21] MEDS ORDERED: RAPAFLO4 MG PO (12:55)
[2017-02-21] MEDS ORDERED: BISMUTH262 M1 PO (12:55)
[2017-02-21] MEDS ORDERED: [UNRECOGNIZED DRUG - OTHER] TP (12:55)
[2017-02-21] MEDS ORDERED: PROTONIX40 M4 PO (12:55)
[2017-02-21] MEDS ORDERED: SENNA8.6 MG PO (12:55)
[2017-02-21] MEDS ORDERED: ESCITALOPRAM OX20 MG PO (12:55)
[2017-02-21] MEDS ORDERED: MIRALAX255 GM PO (12:55)
[2017-02-21] MEDS ORDERED: COLACE100 MG PO (12:55)
[2017-02-21] MEDS ORDERED: ROBITUSSIN100 MG/53 PO (12:55)
[2017-02-21] MEDS ORDERED: ZANTAC 150MG T150 M1 PO (12:55)
[2017-02-21] MEDS ORDERED: AMITIZA 24 MCG24 MCG PO (12:55)
[2017-02-21] MEDS ORDERED: LOPRESSOR50 PO (12:55)
[2017-02-21] MEDS ORDERED: OMEGA-31000 M1 PO (12:55)
[2017-02-21] MEDS ORDERED: HYDROCODONE-APA1 TA1 PO (12:55)
[2017-02-21] MEDS ORDERED: AKWA TEARS OIN3.5 GM OPHTHALMIC (12:55)
[2017-02-21] MEDS ORDERED: KRISTALOSE10 GM PO (12:55)
[2017-02-21] MEDS ORDERED: XANAX 0.25 MG0.25 MG PO (12:55)
[2017-02-21] MEDS ORDERED: MAGOX 400400 MG PO (12:55)
[2017-02-21] MEDS ORDERED: CLARITIN10 MG PO (12:55)
[2017-02-21] MEDS ORDERED: TRANSDERM-SCO1 PATC1 TRANSDERM (13:02)
[2017-02-21 13:50] VITALS: BP 115/70
== END 2017-02-21 17:57 | disposition home health service (06) | DRG 871 ==
LOC: ER 19:09 → 2N 21:04 → ICU 21:04 → EROBS 21:04 → 2N 21:54 → ICU 01-20 15:47 → 2N 01-21 16:09 → ICU 01-22 16:53 → 4W 01-29 16:06
PROVIDERS: Family Medicine; Hospitalist; Internal Medicine; Internal Medicine Endocrinology, Diabetes & Metabolism; Internal Medicine Pulmonary Disease; Nurse Practitioner Acute Care; Physician Assistant; Specialist; Surgery
PROC: 0DJ08ZZ Inspection of Upper Intestinal Tract, Via Natural or Artificial Opening Endoscopic (ICD-10-PCS; principal; 2017-02-04)
PROC: 0DH63UZ Insertion of Feeding Device into Stomach, Percutaneous Approach (ICD-10-PCS; principal; 2017-02-04)
DX: A41.9 Sepsis, unspecified organism (principal); J69.0 Pneumonitis due to inhalation of food and vomit; J96.01 Acute respiratory failure with hypoxia; J96.02 Acute respiratory failure with hypercapnia; G93.41 Metabolic encephalopathy; E43 Unspecified severe protein-calorie malnutrition; E87.0 Hyperosmolality and hypernatremia; K56.7 Ileus, unspecified; Z68.1 Body mass index [BMI] 19.9 or less, adult; G80.9 Cerebral palsy, unspecified; R65.20 Severe sepsis without septic shock; J98.6 Disorders of diaphragm; M41.9 Scoliosis, unspecified; G47.33 Obstructive sleep apnea (adult) (pediatric); I10 Essential (primary) hypertension; Z66 Do not resuscitate; E87.6 Hypokalemia; R13.10 Dysphagia, unspecified; R33.9 Retention of urine, unspecified; D53.9 Nutritional anemia, unspecified; R19.7 Diarrhea, unspecified; Z79.899 Other long term (current) drug therapy
CPT/HCPCS: 10045; 10078; 10081; 10797; 50010; 50101; 50249; 50386; 50403; 50555; 50944; 52265; 54022; 54118; 56524; 56525; 56526; 62110; 62900; 70005

== ENCOUNTER 2017-03-29 10:06 | Emergency (ER) | payer OTHER ==
[~2017-03-29] VITALS: Ht 154.9 cm; Wt 38.6 kg
--- NOTE | ~2017-03-29 | EKG ---
[address] [address] [place] [address] ELECTROCARDIOGRAM REPORT Name: KIRSTIE CORONA Room #: DEP Lloyd#: [id number] Admission: 03/29/17 Attend Phys: Discharge: 03/29/17 Date of : 62 Report #: [id number] THIS REPORT FOR: //name// [facility] ED Test Date: 2017-03-29 Test Time: 10:33:12 Pat Name: KIRSTIE CORONA Department: Room: Gender: Tax Compliance Manager: BECK : 1960 Requested By: Mickey Jeffries Order Number: [id number] MD: Parish Lopez Measurements Intervals [place] Rate: 81 P: 21 ME: 148 QRS: -13 QRSD: 73 T: 36 QT: 343 QTc: 398 Interpretive Statements Sinus rhythm Low voltage, extremity leads Baseline wander in lead(s) V2 Compared to ECG 01/20/2017 10:58:51 Sinus tachycardia no longer present Electronically Signed On 03-30-2017 8:08:01 CDT by Parish Lopez [email or web address] <ELECTRONICALLY SIGNED> By: Parish Lopez MD, [facility] 03/30/17 0808 1033 1033 Parish Lopez MD, [facility] /EPI
[~2017-03-29 10:06] MED LIST changes: +ACCUNEB SO1.25 MG/1 INH; +AKWA TEARS OIN3.5 GM OPHTHALMIC; +BISMUTH262 M1 PO; +CLARITIN10 MG PO; +IRON325 PO; +KRISTALOSE10 GM PO; +METOCLOPRA10 MG/101 PER TUBE; +RAPAFLO4 MG PO; +ROBITUSSIN100 MG/53 PO; +TRANSDERM-SCO1 PATC1 TRANSDERM
[2017-03-29 10:37] LABS: ABSOLUTE NEUTROPHILS 2.3 thou/uL (1.4-8.2); BASOPHILS 0.4 % (0.0-2.0); EOSINOPHILS 13.8 % (0.0-3.0); HEMATOCRIT 38.4 % (42.0-52.0); HEMOGLOBIN 12.6 gm/dL (14.0-18.0); LYMPHOCYTES 24.8 % (24.0-44.0); MCH 28.5 pg (26.0-34.0); MCHC 32.8 g/dL (28.0-37.0); MCV 86.9 fL (80.0-100.0); MONOCYTES 7.1 % (1.0-8.0); PLATELET COUNT 179 thou/uL (150-400); POLYS 53.9 % (36.0-66.0); RBC 4.42 mil/uL (4.50-6.00); RDW 15.4 % (10.5-14.5); WBC 4.3 thou/uL (4.0-11.0)
[2017-03-29 10:38] LABS: MANUAL DIFF NO
[2017-03-29 10:46] LABS: ANION GAP 3 mmol/L (7-16); BUN 15 mg/dL (7-18); CALCIUM 9.3 mg/dL (8.5-10.1); CHLORIDE 101 mmol/L (98-107); CO2 34 mmol/L (21-32); CREATININE 0.7 mg/dL (0.7-1.3); GLUCOSE 112 mg/dL (74-106); POTASSIUM 4.2 mmol/L (3.5-5.1); SODIUM 138 mmol/L (136-145)
[2017-03-29 10:52] LABS: ALBUMIN 3.2 g/dL (3.4-5.0); ALKALINE PHOSPHATASE 89 U/L (46-116); DIRECT BILIRUBIN < 0.1 mg/dL (<0.1-0.3); SGOT 17 U/L (15-37); SGPT 21 U/L (30-65); TOTAL BILIRUBIN 0.2 mg/dL (<0.1-1.0); TOTAL PROTEIN 7.3 g/dL (6.4-8.2); TROPONIN-I < 0.04 ng/mL (<0.04-0.07)
[2017-03-29] MEDS ORDERED: TRANSDERM-SCO1 PATC1 TD (11:19)
[2017-03-29 11:46] LABS: URINE BILIRUBIN NEGATIVE (Negative); URINE BLOOD NEGATIVE (Negative); URINE COLOR YELLOW; URINE GLUCOSE-RANDOM* NEGATIVE (Negative); URINE KETONES NEGATIVE (Negative); URINE NITRITE NEGATIVE (Negative); URINE PROTEIN (DIPSTICK) NEGATIVE (Negative); URINE SPECIFIC GRAVITY <= 1.005 (1.003-1.035); URINE UROBILINOGEN 0.2 E.U./dl (0.2-1.0)
[2017-03-29] MEDS ORDERED: ONDANSETRON HCL4 M2 PO (12:49)
== END 2017-03-29 14:52 | disposition home or self-care (01) ==
LOC: ER 10:06
PROVIDERS: Nurse Practitioner
DX: R11.0 Nausea (principal); M25.552 Pain in left hip; I10 Essential (primary) hypertension; M19.90 Unspecified osteoarthritis, unspecified site; F41.9 Anxiety disorder, unspecified; F32.9 Major depressive disorder, single episode, unspecified; Z87.442 Personal history of urinary calculi; Z86.69 Personal history of other diseases of the nervous system and sense organs

== ENCOUNTER 2017-04-12 11:23 | Emergency (ER) | payer OTHER ==
[~2017-04-12] VITALS: Wt 36.5 kg
--- NOTE | ~2017-04-12 | EKG ---
[address] [address] [facility] [place] [address] ELECTROCARDIOGRAM REPORT Name: KIRSTIE CORONA SONIA Room #: DEP Lloyd#: [id number] Admission: 04/12/17 Attend Phys: Discharge: 04/12/17 Date of : 62 Report #: [id number] THIS REPORT FOR: //name// [facility] ED Test Date: 2017-04-12 Test Time: 11:46:45 Pat Name: KIRSTIE CORONA Department: Room: Gender: M Branch Or Department Chief Librarian: [id number] : 1960 Requested By: Kat Calles Order Number: [id number] MD: Parish Lopez Measurements Intervals [place] Rate: 91 P: 22 RI: 138 QRS: -30 QRSD: 73 T: 22 QT: 350 QTc: 431 Interpretive Statements Sinus rhythm Possible Inferior infarct, old Compared to ECG 03/29/2017 10:33:12 No significant change was found Electronically Signed On 04-13-2017 18:15:28 CDT by Parish Lopez [email or web address] <ELECTRONICALLY SIGNED> By: Parish Lpoez MD, [facility] 04/13/17 1815 D: [id number] 114 Parish Lopez MD, FAC /EPI
[~2017-04-12 11:23] MED LIST changes: +ONDANSETRON HCL4 M2 PO; +TRANSDERM-SCO1 PATC1 TD
[2017-04-12 11:52] LABS: ABSOLUTE NEUTROPHILS 4.8 thou/uL (1.4-8.2); BASOPHILS 0.2 % (0.0-2.0); EOSINOPHILS 5.1 % (0.0-3.0); HEMATOCRIT 38.1 % (42.0-52.0); HEMOGLOBIN 12.6 gm/dL (14.0-18.0); LYMPHOCYTES 12.7 % (24.0-44.0); MCH 28.1 pg (26.0-34.0); MCV 85.2 fL (80.0-100.0); PLATELET COUNT 187 thou/uL (150-400); RBC 4.47 mil/uL (4.50-6.00); WBC 6.4 thou/uL (4.0-11.0)
[2017-04-12 11:53] LABS: MANUAL DIFF NO
[2017-04-12 12:00] LABS: CALCIUM 9.5 mg/dL (8.5-10.1); CREATININE 0.7 mg/dL (0.7-1.3); POTASSIUM 4.3 mmol/L (3.5-5.1)
[2017-04-12 12:27] LABS: ABG SAMPLE TYPE ARTERIAL; BE(vivo) 4.9 mmol/L (-2 to +3); HCO3 30.5 mmol/L (22.0-26.0); LACTATE 1.93 mmol/L (0.5-2.0); O2(CT) 16.6 mL/dL (15.0-23.0); PO2 69.2 mmHg (80.0-100.0); STICK SITE R.RADIAL; pH 7.412 (7.360-7.450); sO2 93.9 % (92.0-98.0)
[2017-04-12] MEDS ORDERED: ALBUTEROL2.5 MG/31 INH (13:51)
[2017-04-12] MEDS ORDERED: XANAX 0.25 MG0.25 MG PO (14:11)
[2017-04-12] MEDS ORDERED: ZANTAC 150MG T150 MG PO (14:11)
[2017-04-12] MEDS ORDERED: COLACE100 MG PO (14:31)
== END 2017-04-12 13:52 | disposition home or self-care (01) ==
LOC: ER 11:23
PROVIDERS: Emergency Medicine
DX: J40 Bronchitis, not specified as acute or chronic (principal); F41.9 Anxiety disorder, unspecified; F32.9 Major depressive disorder, single episode, unspecified; I10 Essential (primary) hypertension; Z87.442 Personal history of urinary calculi

== ENCOUNTER 2017-05-19 16:16 | Emergency (ER) | payer OTHER ==
[~2017-05-19] VITALS: Ht 154.9 cm; Wt 36.3 kg
--- NOTE | ~2017-05-19 | EKG ---
[address] [address] [place] [address] ELECTROCARDIOGRAM REPORT Name: KIRSTIE CORONA SONIA Room #: DEP CAYLA Desai#: [id number] Admission: 05/19/17 Attend Phys: Discharge: 05/19/17 Date of : 62 Report #: [id number] THIS REPORT FOR: //name// [facility] ED Test Date: 2017-05-19 Test Time: 17:24:00 Pat Name: KIRSTIE CORONA Department: Room: Gender: Financial Foundations Associate: [id number] : 1960 Requested By: Arielle Luz Order Number: [id number] MD: Parish Lopez Measurements Intervals [place] Rate: 84 P: 47 OR: 153 QRS: -30 QRSD: 74 T: 35 QT: 354 QTc: 419 Interpretive Statements Sinus rhythm Left axis deviation Borderline low voltage, extremity leads Compared to ECG 04/12/2017 11:46:45 No significant change was found Electronically Signed On 05-20-2017 8:59:40 CDT by Parish Lopez [email or web address] <ELECTRONICALLY SIGNED> By: Parish Lopez MD, [facility] 05/20/17 0859 1724 172 Parish Lopez MD, [facility] /EPI
[~2017-05-19 16:16] MED LIST changes: +ALBUTEROL2.5 MG/31 INH; +ZANTAC 150MG T150 MG PO
[2017-05-19 17:49] LABS: ABSOLUTE NEUTROPHILS 3.2 thou/uL (1.4-8.2); BASOPHILS 0.5 % (0.0-2.0); EOSINOPHILS 9.4 % (0.0-3.0); HEMATOCRIT 40.3 % (42.0-52.0); LYMPHOCYTES 27.1 % (24.0-44.0); MCHC 32.1 g/dL (28.0-37.0); MONOCYTES 6.6 % (1.0-8.0); PLATELET COUNT 148 thou/uL (150-400); POLYS 56.4 % (36.0-66.0); RDW 15.1 % (10.5-14.5); WBC 5.6 thou/uL (4.0-11.0)
[2017-05-19 17:58] LABS: MANUAL DIFF NO
[2017-05-19 18:01] LABS: ANION GAP 2 mmol/L (7-16); BUN 19 mg/dL (7-18); CALCIUM 9.7 mg/dL (8.5-10.1); CHLORIDE 101 mmol/L (98-107); CO2 34 mmol/L (21-32); CREATININE 0.6 mg/dL (0.7-1.3); GLUCOSE 93 mg/dL (74-106); POTASSIUM 4.3 mmol/L (3.5-5.1); SODIUM 137 mmol/L (136-145)
[2017-05-19 18:10] LABS: TROPONIN-I < 0.04 ng/mL (<0.04-0.07)
== END 2017-05-19 19:37 | disposition home or self-care (01) ==
LOC: ER 16:16
PROVIDERS: Emergency Medicine
DX: J06.9 Acute upper respiratory infection, unspecified (principal); I10 Essential (primary) hypertension; G47.33 Obstructive sleep apnea (adult) (pediatric); F41.9 Anxiety disorder, unspecified; F32.9 Major depressive disorder, single episode, unspecified; K22.70 Barrett's esophagus without dysplasia; M41.9 Scoliosis, unspecified; G80.8 Other cerebral palsy; Z87.442 Personal history of urinary calculi; Z87.440 Personal history of urinary (tract) infections

== ENCOUNTER 2017-05-23 08:37 | Emergency (ER) | payer OTHER ==
[~2017-05-23] VITALS: Ht 139.7 cm; Wt 31.8 kg
--- NOTE | ~2017-05-23 | EKG ---
[address] [address] [facility] [place] [address] ELECTROCARDIOGRAM REPORT Name: KIRSTIE CORONA SONIA [id number] Admission: 05/23/17 Attend Phys: Discharge: 05/23/17 Date of : 62 Report #: [id number] THIS REPORT FOR: //name// [facility] ED Test Date: 2017-05-23 Test Time: 08:43:38 Pat Name: KIRSTIE CORONA Department: Room: Gender: Hair Machine Operator: JACKI : 1960 Requested By: Kat Calles Order Number: [id number] MD: Parish Lopez Measurements Intervals [place] Rate: 103 P: 27 WI: 150 QRS: -27 QRSD: 73 T: 47 QT: 346 QTc: 453 Interpretive Statements Sinus tachycardia Probable left atrial enlargement Borderline low voltage, extremity leads RSR' in V1 or V2, probably normal variant Compared to ECG 05/19/2017 17:24:00 No significant change was found Electronically Signed On 05-23-2017 16:31:36 CDT by Parish Lopez [email or web address] <ELECTRONICALLY SIGNED> By: Parish Lopez MD, [facility] 05/23/17 7231 0843 0843 Parish Lopez MD, [facility] /EPI
[2017-05-23 09:29] LABS: ABSOLUTE NEUTROPHILS 3.9 thou/uL (1.4-8.2); BASOPHILS 0.4 % (0.0-2.0); EOSINOPHILS 6.7 % (0.0-3.0); HEMATOCRIT 44.2 % (42.0-52.0); HEMOGLOBIN 14.2 gm/dL (14.0-18.0); LYMPHOCYTES 22.9 % (24.0-44.0); MANUAL DIFF NO; MCH 27.2 pg (26.0-34.0); MCHC 32.1 g/dL (28.0-37.0); MCV 84.7 fL (80.0-100.0); MONOCYTES 7.7 % (1.0-8.0); PLATELET COUNT 135 thou/uL (150-400); POLYS 62.3 % (36.0-66.0); RBC 5.22 mil/uL (4.50-6.00); RDW 14.9 % (10.5-14.5); WBC 6.2 thou/uL (4.0-11.0)
[2017-05-23 09:32] LABS: ABG SAMPLE TYPE ARTERIAL; BE(vivo) 6.7 mmol/L (-2 to +3); HCO3 32.3 mmol/L (22.0-26.0); LACTATE 1.51 mmol/L (0.5-2.0); O2(CT) 17.7 mL/dL (15.0-23.0); O2Hb 91.2 % (92.0-98.0); PCO2 49.6 mmHg (35.0-45.0); pH 7.431 (7.360-7.450); sO2 92.4 % (92.0-98.0); tCO2 33.8 mmol/L (24.0-30.0)
[2017-05-23 09:33] LABS: STICK SITE R.BRACHIAL
[2017-05-23 09:36] LABS: CALCIUM 10.1 mg/dL (8.5-10.1); CREATININE 0.7 mg/dL (0.7-1.3); POTASSIUM 4.1 mmol/L (3.5-5.1)
== END 2017-05-23 12:34 ==
LOC: ER 08:37
PROVIDERS: Emergency Medicine
DX: J06.9 Acute upper respiratory infection, unspecified (principal); I10 Essential (primary) hypertension; F41.9 Anxiety disorder, unspecified; F32.9 Major depressive disorder, single episode, unspecified

== ENCOUNTER 2017-06-08 14:19 | Emergency (ER) | payer OTHER ==
[~2017-06-08] VITALS: Ht 157.5 cm; Wt 34.0 kg
== END 2017-06-08 16:35 | disposition home or self-care (01) ==
LOC: ER 14:19
DX: K94.23 Gastrostomy malfunction (principal); I10 Essential (primary) hypertension; F41.9 Anxiety disorder, unspecified; F32.9 Major depressive disorder, single episode, unspecified

== ENCOUNTER 2017-06-12 02:00 | Emergency (ER) | payer OTHER ==
[~2017-06-12] VITALS: Ht 154.9 cm; Wt 31.8 kg
[2017-06-12 02:25] LABS: HEMATOCRIT 41.1 % (42.0-52.0); HEMOGLOBIN 13.2 gm/dL (14.0-18.0); MCV 84.5 fL (80.0-100.0); RBC 4.87 mil/uL (4.50-6.00); RDW 15.8 % (10.5-14.5); WBC 5.7 thou/uL (4.0-11.0)
[2017-06-12 02:27] LABS: CALCIUM 9.5 mg/dL (8.5-10.1); CREATININE 0.6 mg/dL (0.7-1.3); POTASSIUM 4.5 mmol/L (3.5-5.1)
== END 2017-06-12 05:10 | disposition home or self-care (01) ==
LOC: ER 02:00
PROVIDERS: Emergency Medicine
DX: K94.23 Gastrostomy malfunction (principal); I10 Essential (primary) hypertension; G80.9 Cerebral palsy, unspecified; M41.9 Scoliosis, unspecified; G47.33 Obstructive sleep apnea (adult) (pediatric); F41.9 Anxiety disorder, unspecified; F32.9 Major depressive disorder, single episode, unspecified; Z87.440 Personal history of urinary (tract) infections; Z87.442 Personal history of urinary calculi

== ENCOUNTER 2017-10-07 14:01 | Emergency (ER) | payer OTHER ==
[~2017-10-07] VITALS: Ht 165.1 cm; Wt 31.8 kg
--- NOTE | ~2017-10-07 | EKG ---
[address] [address] ELECTROCARDIOGRAM REPORT Name: KIRSTIE CORONA Room #: TAMIR Desai#: [id number] Admission: 10/07/17 Attend Phys: Discharge: 10/07/17 Date of : 62 Report #: [id number] THIS REPORT FOR: //name// [facility] ED Test Date: 2017-10-07 Test Time: 15:41:58 Pat Name: KIRSTIE CORONA Department: Room: Gender: Technical Publications Writer: MZOOK : 1960 Requested By: Nandini Philip Order Number: [id number] MD: Mau Glover Measurements Intervals [place] Rate: 87 P: 46 NC: 145 QRS: 84 QRSD: 66 T: 53 QT: 354 QTc: 426 Interpretive Statements Sinus rhythm Minimal ST elevation, lateral leads Compared to ECG 07/18/2017 16:02:56 ST (T wave) deviation now present Sinus tachycardia no longer present T-wave abnormality no longer present Electronically Signed On 10-08-2017 9:05:43 SIPHONER by Mau Glover [email or web address] <ELECTRONICALLY SIGNED> By: Mau Glover MD 10/08/17 0905 1541 1541 Mau Glover MD /EPI
[2017-10-07 15:45] LABS: ABSOLUTE NEUTROPHILS 3.3 thou/uL (1.4-8.2); BASOPHILS 0.5 % (0.0-2.0); EOSINOPHILS 6.5 % (0.0-3.0); HEMATOCRIT 43.2 % (42.0-52.0); HEMOGLOBIN 14.2 gm/dL (14.0-18.0); LYMPHOCYTES 25.4 % (24.0-44.0); MCH 29.1 pg (26.0-34.0); MCHC 32.9 g/dL (28.0-37.0); MCV 88.6 fL (80.0-100.0); MONOCYTES 8.9 % (1.0-8.0); PLATELET COUNT 162 thou/uL (150-400); POLYS 58.7 % (36.0-66.0); RBC 4.87 mil/uL (4.50-6.00); RDW 13.9 % (10.5-14.5); WBC 5.6 thou/uL (4.0-11.0)
[2017-10-07 15:46] LABS: BE(vivo) 5.4 mmol/L (-2 to +3); HCO3 31.4 mmol/L (22.0-26.0); PCO2 51.3 mmHg (35.0-45.0); PO2 59.9 mmHg (80.0-100.0); pH 7.405 (7.360-7.450); sO2 90.7 % (92.0-98.0)
[2017-10-07 15:49] LABS: URINE BILIRUBIN NEGATIVE (Negative); URINE BLOOD NEGATIVE (Negative); URINE CLARITY CLEAR; URINE COLOR YELLOW; URINE GLUCOSE-RANDOM* NEGATIVE (Negative); URINE KETONES NEGATIVE (Negative); URINE LEUKOCYTES NEGATIVE (Negative); URINE NITRITE NEGATIVE (Negative); URINE PROTEIN (DIPSTICK) NEGATIVE (Negative); URINE SPECIFIC GRAVITY 1.025 (1.005-1.035); URINE UROBILINOGEN 0.2 E.U./dl (0.2-1.0)
[2017-10-07 15:54] LABS: ANION GAP 5 mmol/L (7-16); BUN 23 mg/dL (7-18); CALCIUM 9.4 mg/dL (8.5-10.1); CHLORIDE 102 mmol/L (98-107); CO2 34 mmol/L (21-32); CREATININE 0.9 mg/dL (0.7-1.3); GLUCOSE 102 mg/dL (74-106); POTASSIUM 4.4 mmol/L (3.5-5.1); SODIUM 141 mmol/L (136-145)
[2017-10-07 16:03] LABS: ALBUMIN 3.6 g/dL (3.4-5.0); LIPASE 73 U/L (73-393); SGOT 17 U/L (15-37); SGPT 27 U/L (30-65); TOTAL BILIRUBIN 0.2 mg/dL (<0.1-1.0); TOTAL PROTEIN 7.7 g/dL (6.4-8.2); TROPONIN-I < 0.04 ng/mL (<0.06)
[2017-10-07] MEDS ORDERED: PREDNISONE 20 M20 MG PO (16:32)
[2017-10-07] MEDS ORDERED: TESSALON PERLE100 MG PO (16:32)
[2017-10-07 20:32] VITALS: BP 110/58
== END 2017-10-07 20:33 | disposition home or self-care (01) ==
LOC: ER 14:01
PROVIDERS: Nurse Practitioner Family
DX: J40 Bronchitis, not specified as acute or chronic (principal); I10 Essential (primary) hypertension; F41.9 Anxiety disorder, unspecified; F32.9 Major depressive disorder, single episode, unspecified; Z87.442 Personal history of urinary calculi

== ENCOUNTER 2017-10-25 01:27 | Inpatient (IN) | payer OTHER ==
[2017-10-25] VITALS (7 sets, daily range): BP systolic 95–186; BP diastolic 41–92
[~2017-10-25] VITALS: Ht 152.4 cm; Wt 38.9 kg
--- NOTE | ~2017-10-25 | P ---
[facility] [place] [address] PROCEDURE REPORT Name: KIRSTIE CORONA Room #: 216-P [facility] IN M.R.#: [id number] Admission: 10/25/17 Attend Phys: Cesar Berumen MD Discharge: 10/27/17 Date of : 62 Report #: [id number] THIS REPORT FOR: //name// CC: Cesar Phillips DATE OF SERVICE: 10/26/2017 PATIENT OF: Kim Phillips MD and Cesar Berumen MD INDICATION FOR PROCEDURE: To evaluate symptoms of GERD, chest pain, anemia, heme-positive stools and coffee-grounds per PEG tube. Informed consent for this procedure was obtained prior to the administration of any medication. The risks of the procedure which include bleeding, perforation, infection, complications of sedation and the possibility I could miss something have been explained to the patient's mother, who is his guardian and she has indicated her consent by signing. Propofol was slowly titrated before and during this procedure for patient comfort by the anesthesia service. The Viepagen upper videoscope was introduced through the upper esophageal sphincter and advanced under direct visualization to the duodenal bulb. The patient has a large J-shaped stomach and I cannot advance the scope any further into the duodenum because of this J-shaped stomach. Findings are noted on withdrawal of the scope. There is some mild erythema of the duodenal bulb. Pylorus, normal mucosa and antrum, hemorrhagic gastritis, mild. Biopsies were obtained from the antrum and body of the stomach for histopathology and good hemostasis was noted after those biopsies. Body, cardia and fundus all appeared to have some mild erythema. Retroflex view did not reveal any further abnormalities. The scope was withdrawn to the esophagus. 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 In this area, there is what appears to be a submucosal nodule. I did not attempt to biopsy this. I think an EUS would be needed to safely evaluate it first. The more proximal and distal esophagus appears normal. The scope was withdrawn. The patient went to the recovery area in stable condition. He tolerated the procedure well. IMPRESSION: 1. Diffuse gastric erythema, hemorrhagic in the antrum. Biopsies for histopathology obtained. 2. Mild erythema of the duodenal bulb. 3. 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 There is also within this Bailey's ectopic mucosa, a submucosal appearing nodule. I did not attempt to biopsy this. I think [address] [address] PROCEDURE REPORT Name: KIRSTIE CORONA Room #: 216-P [facility] IN M.R.#: [id number] Admission: 10/25/17 Attend Phys: Cesar Berumen MD Discharge: 10/27/17 Date of : 62 Report #: [id number] endoscopic ultrasound would be appropriate for further evaluation. The scope was withdrawn. The patient went to the recovery area in stable condition. He tolerated the procedure well. IMPRESSION: As above. RECOMMENDATIONS: To continue the proton pump inhibitors. Resume the tube feedings. He has got Dulcolax suppository ordered. He will need endoscopic ultrasound of the esophagus to get more information about this esophageal lesion and its etiology and possible biopsies can be obtained at that time. Thank you very much once again for allowing me to participate in his care, Dr. Phillips and Dr. Berumen. <ELECTRONICALLY SIGNED> By: Drea Saha DO 10/28/17 0918 1313 2236 Drea Saha DO /nt
--- NOTE | ~2017-10-25 | S ---
[facility] [place] [address] SURGICAL PATH RPT PROCEDURE Name: CHLOEKIRSTIE SCOTT Room #: 216-P ADM IN M.R.#: [id number] Admission: 10/25/17 Date of : 62 Discharge: Report #: [id number] Path Case #: [id number] PATHOLOGY REPORT COLLECTION DATE: 10/26/2017 RECEIVED DATE: 10/26/2017 SUBMITTING PHYS: Dr. Drea Saha OTHER PHYS: Antoine Atkinson Dr. SPECIMEN(S) RECEIVED: A.Gastric * * * * * * * * * * * * FINAL DIAGNOSIS: Gastric mucosa, gastric rule out H. pylori, endoscopic biopsy: - Mild reactive gastropathy. - Negative for intestinal metaplasia or atrophy. - Negative for Helicobacter pylori. COMMENT: Well controlled Helicobacter pylori immunohistochemical stain performed on block A1 - negative. (IUV:db; 10/27/2017) PATHOLOGIST: Natalie Doty M.D. REPORT ELECTRONICALLY SIGNED BY: Natalie Doty M.D. DATE/TIME: 10/27/2017 14:20 * * * * * * * * * * * * GROSS PATHOLOGY: Received in formalin labeled "Kirstie Fonseca, gastric BX, rule out H. pylori," is a segment of forbes soft tissue measuring 0.7 cm in maximum dimension. The specimen is submitted entirely in cassette A1. (TSD; 10/26/2017) CLINICAL HISTORY: Pre-OP DX: Coffee-ground mucosa Post-OP DX: Mid esophageal nodule, possible Bailey's, diffuse mildmoderate gastritis INITIAL CPT CODE(S): A; 93275, 87335 Professional services performed by [facility] at [facility] [address] [place] [address] SURGICAL PATH RPT PROCEDURE Name: KIRSTIE FONSECA Room #: 216-P ADM IN M.R.#: [id number] Admission: 10/25/17 Date of : 62 Discharge: Report #: [id number] Path Case #: [id number] [address], [place] [address] Technical services performed by [facility] at [address] [place] [address], [facility] [address], [place] [address]. [facility] [address] [place] [address] PHONE: [phone] DIRECTOR: Nabil Adamson M.D. * * * END OF REPORT * * *
--- NOTE | ~2017-10-25 | EKG ---
[address] [place] [address] ELECTROCARDIOGRAM REPORT Name: KIRSTIE CORONA Room #: 216-P ADM IN M.R.#: [id number] Admission: 10/25/17 Attend Phys: Cesar Berumen MD Discharge: Date of : 62 Report #: [id number] THIS REPORT FOR: //name// [facility] Test Date: 2017-10-25 Test Time: 09:18:59 Pat Name: KIRSTIE CORONA Department: Room: 216 P Gender: M Track Maintainer: NOLBERTO : 1960 Requested By: Cesar Berumen Order Number: [id number] MD: Parish Lopez Measurements Intervals [place] Rate: 115 P: 42 [place]: 129 QRS: 31 QRSD: 67 T: 41 QT: 320 QTc: 443 Interpretive Statements Sinus tachycardia Probable left atrial enlargement Borderline low voltage, extremity leads Abnormal R-wave progression, late transition No previous ECGs available for comparison Electronically Signed On 10-25-2017 16:30:55 HARD CANDY BATCH MIXER by Parish Lopez [email or web address] <ELECTRONICALLY SIGNED> By: Parish Lopez MD, [facility] 10/25/17 1630 7 7 Parish oLpez MD, [facility] /EPI
[~2017-10-25 01:27] MED LIST changes: +PREDNISONE 20 M20 MG PO; +TESSALON PERLE100 MG PO
[2017-10-25 02:29] LABS: ABSOLUTE NEUTROPHILS 4.2 thou/uL (1.4-8.2); BASOPHILS 0.3 % (0.0-2.0); EOSINOPHILS 3.6 % (0.0-3.0); HEMATOCRIT 41.8 % (42.0-52.0); HEMOGLOBIN 13.7 gm/dL (14.0-18.0); LYMPHOCYTES 25.3 % (24.0-44.0); MCH 28.6 pg (26.0-34.0); MCHC 32.8 g/dL (28.0-37.0); MCV 87.3 fL (80.0-100.0); MONOCYTES 7.6 % (1.0-8.0); PLATELET COUNT 195 thou/uL (150-400); POLYS 63.2 % (36.0-66.0); RBC 4.79 mil/uL (4.50-6.00); RDW 14.1 % (10.5-14.5); WBC 6.6 thou/uL (4.0-11.0)
[2017-10-25 02:32] LABS: CALCIUM 9.2 mg/dL (8.5-10.1); CREATININE 0.8 mg/dL (0.7-1.3); POTASSIUM 4.3 mmol/L (3.5-5.1)
[2017-10-25 08:49] LABS: HEMATOCRIT 37.3 % (42.0-52.0); HEMOGLOBIN 12.3 gm/dL (14.0-18.0)
[2017-10-25 14:04] LABS: HEMATOCRIT 37.1 % (42.0-52.0); HEMOGLOBIN 12.1 gm/dL (14.0-18.0)
[2017-10-25 14:58] LABS: URINE BILIRUBIN NEGATIVE (Negative); URINE BLOOD NEGATIVE (Negative); URINE CLARITY CLEAR; URINE COLOR YELLOW; URINE GLUCOSE-RANDOM* NEGATIVE (Negative); URINE KETONES NEGATIVE (Negative); URINE LEUKOCYTES-REFLEX NEGATIVE (Negative); URINE NITRITE-REFLEX NEGATIVE (Negative); URINE PROTEIN (DIPSTICK) NEGATIVE (Negative); URINE UROBILINOGEN 0.2 E.U./dl (0.2-1.0)
[2017-10-25 20:21] LABS: HEMOGLOBIN 12.2 gm/dL (14.0-18.0)
[2017-10-26 02:21] LABS: ABSOLUTE NEUTROPHILS 6.7 thou/uL (1.4-8.2); BASOPHILS 0.4 % (0.0-2.0); EOSINOPHILS 2.3 % (0.0-3.0); HEMATOCRIT 33.1 % (42.0-52.0); HEMOGLOBIN 10.9 gm/dL (14.0-18.0); LYMPHOCYTES 11.3 % (24.0-44.0); MCV 87.9 fL (80.0-100.0); MONOCYTES 4.6 % (1.0-8.0); PLATELET COUNT 155 thou/uL (150-400); POLYS 81.4 % (36.0-66.0); RBC 3.76 mil/uL (4.50-6.00); RDW 13.9 % (10.5-14.5); WBC 8.2 thou/uL (4.0-11.0)
[2017-10-26 02:27] LABS: CALCIUM 8.6 mg/dL (8.5-10.1); CREATININE 0.7 mg/dL (0.7-1.3); POTASSIUM 4.3 mmol/L (3.5-5.1)
[2017-10-26 04:30] VITALS: BP 102/62
[2017-10-26 08:00] VITALS: BP 134/89
[2017-10-26 13:50] VITALS: BP 149/87
[2017-10-26 15:37] VITALS: BP 149/87
[2017-10-26 16:00] VITALS: BP 152/100
[2017-10-26 19:32] VITALS: BP 136/92
[2017-10-27 03:22] LABS: URINE BILIRUBIN NEGATIVE (Negative); URINE BLOOD NEGATIVE (Negative); URINE CLARITY CLEAR; URINE COLOR YELLOW; URINE GLUCOSE-RANDOM* NEGATIVE (Negative); URINE KETONES 1+ (Negative); URINE LEUKOCYTES-REFLEX NEGATIVE (Negative); URINE NITRITE-REFLEX NEGATIVE (Negative); URINE PROTEIN (DIPSTICK) NEGATIVE (Negative); URINE SPECIFIC GRAVITY 1.015 (1.005-1.035); URINE UROBILINOGEN 0.2 E.U./dl (0.2-1.0)
[2017-10-27 03:24] LABS: ABSOLUTE NEUTROPHILS 4.4 thou/uL (1.4-8.2); BASOPHILS 0.4 % (0.0-2.0); EOSINOPHILS 4.4 % (0.0-3.0); HEMATOCRIT 33.7 % (42.0-52.0); LYMPHOCYTES 20.1 % (24.0-44.0); MCHC 32.7 g/dL (28.0-37.0); MCV 88.6 fL (80.0-100.0); MONOCYTES 7.3 % (1.0-8.0); PLATELET COUNT 164 thou/uL (150-400); POLYS 67.8 % (36.0-66.0); RBC 3.81 mil/uL (4.50-6.00); RDW 13.9 % (10.5-14.5); WBC 6.4 thou/uL (4.0-11.0)
[2017-10-27 04:15] VITALS: BP 117/74
[2017-10-27 07:45] VITALS: BP 137/84
[2017-10-27 11:50] VITALS: BP 119/78
[2017-10-27 12:39] VITALS: BP 149/87
[2017-10-27 15:52] VITALS: BP 149/87
[2017-10-27 16:58] VITALS: BP 149/87
== END 2017-10-27 17:11 | disposition home health service (06) | DRG 378 ==
LOC: ER 01:27 → EROBS 03:20 → 2N 04:14
PROVIDERS: Emergency Medicine; Hospitalist; Nurse Practitioner Acute Care
PROC: 0DB68ZX Excision of Stomach, Via Natural or Artificial Opening Endoscopic, Diagnostic (ICD-10-PCS; principal; 2017-10-26)
DX: K92.2 Gastrointestinal hemorrhage, unspecified (principal); D62 Acute posthemorrhagic anemia; G80.9 Cerebral palsy, unspecified; I10 Essential (primary) hypertension; G47.33 Obstructive sleep apnea (adult) (pediatric); F41.9 Anxiety disorder, unspecified; F32.9 Major depressive disorder, single episode, unspecified; E86.0 Dehydration; K59.00 Constipation, unspecified; R13.10 Dysphagia, unspecified; K20.9 Esophagitis, unspecified; M41.9 Scoliosis, unspecified; Z87.442 Personal history of urinary calculi; Z79.899 Other long term (current) drug therapy
CPT/HCPCS: 10194; 62110; 62900; 70005